=== PATIENT | male | born 1960 | race Caucasian/White ===

== ENCOUNTER → 2023-05-27 14:51 | Outpatient (REF) | payer OTHER, SELFPAY | LOC: DHCBS HW 14:51 | PROVIDERS: ATTENDING PHYSICIAN Internal Medicine Cardiovascular Disease; FAMILY PHYSICIAN Family Medicine | DX: I34.1 Nonrheumatic mitral (valve) prolapse (principal); I42.9 Cardiomyopathy, unspecified | CPT/HCPCS: 93306 ==

== ENCOUNTER → 2023-06-03 11:01 | Day surgery (SDC) | payer OTHER, SELFPAY ==
--- NOTE | 2023-06-03 12:29 | ITS.CL.CARDI ---
Lead Accountant - Cardioversion
Cardioversion
Procedure Report:
Date of Procedure: June 03 2023
Procedure: Cardioversion
Indication: Symptomatic atrial fibrillation
Performing Physician: Christopher Inman DO, FACC
Technique: The patient was brought to the holding area. Signed informed consent was obtained. A time out was called and performed. The patient was anesthetized by the anesthesia service. Anticoagulation status was reviewed and appropriate. R2 pads
were placed anteriorly and posteriorly. A 200 J synchronized biphasic shock restored normal sinus rhythm without significant bradycardia. There were no complications.
Conclusion: Uncomplicated cardioversion from atrial fibrillation to sinus rhythm.
Recommendation: Routine post cardioversion care. Continue alf anticoagulation.
[2023-06-03 12:43] VITALS: BMI 36.4
== END ==
LOC: CATH 11:01
PROVIDERS: ATTENDING PHYSICIAN Internal Medicine Cardiovascular Disease; FAMILY PHYSICIAN Family Medicine; OTHER PHYSICIAN Internal Medicine Cardiovascular Disease
DX: I48.91 Unspecified atrial fibrillation (principal); I45.10 Unspecified right bundle-branch block; I10 Essential (primary) hypertension; Z95.2 Presence of prosthetic heart valve; G47.33 Obstructive sleep apnea (adult) (pediatric); Z79.01 Long term (current) use of anticoagulants
CPT/HCPCS: 92960; 93005

== ENCOUNTER 2023-10-06 09:33 | Inpatient (IN) | payer OTHER, SELFPAY ==
[2023-10-06 09:50] VITALS: BP 133/83
[2023-10-06 09:57] VITALS: BMI 36.1
--- NOTE | 2023-10-06 10:00 | PTCARENOTE ---
Rec'd pt as a direct admit from home for Tikosyn loading; Pt AAOx3 w/no c/o CP or SOB. Pt noted to be in Afib on telemetry monitoring & confirmed w/EKG. Baseline QTc noted to be 428. Pt's VS stable w/HR in the 60's & BP 133/83. IV line placed by
VAT. Labs drawn as ordered. Griselda Garcia NP in to see pt. Pt w/call morrison within reach & plan of care ongoing.
[2023-10-06 10:38] LABS: Hematocrit 40.8 % (39.0-52.0); Mean Corp Hgb Conc. 31.9 g/dL (33.0-37.0); Mean Corpuscular Hgb 21.4 pg (27.0-31.0); Mean Corpuscular Volume 67.2 fL (80.0-94.0); Mean Platelet Volume 11.3 fL (7.4-10.4); Platelet Count 151 10^3/uL (130-400); Red Blood Cell Count 6.07 10^6/uL (4.70-6.10); Red Cell Dist. Width 17.2 % (11.5-14.5); White Blood Cell Count 5.4 10^3/uL (4.8-10.8)
--- NOTE | 2023-10-06 10:46 | CON.CAR ---
Addendum entered and electronically signed by Alvaro Rooney MD 10/06/23 12:29:
Attending addendum: Patient seen and examined. PA note reviewed and findings independently confirmed by me. Briefly, this is a 63-year-old gentleman with a past medical history notable for St. Ze mechanical aortic valve replacement in 2013 with
postoperative atrial fibrillation. Briefly on amiodarone which was stopped in 2013. Developed recurring atrial fibrillation in May 2023 with persistent symptoms over the past several weeks. Now admitted for Tikosyn load.
GEN: AAO x 3. No acute distress
HEENT: NC/AT, sclera are anicteric
LUNGS: Clear to bases bilaterally. No wheezing
CV: Irreg irreg rate and rhythm. Normal S1/S2. No S3, No S4. Murmur: +prosthetic valve click
EXT: No CCE
NEURO: No focal neurologic deficits
ECG: Afib
RECOMMENDATIONS:
-Tikosyn load
-Monitor QT / QTc
-Continue oral anticoag: INR therapeutic and has been therapeutic for many weeks >1 month
-Will continue to monitor
Original Note:
Consultation
Consultation Request
Date/Time Consultation Requested: 10/06/23
Performing Provider: Dr. Rooney
Reason for Consultation: H&P for Tikosyn loading
Medical History
-
History of Present Illness:
Patient presents to the hospital today for direct admission for Tikosyn loading. Patient was last seen in office on 09/04/2023 and was noted to be in persistent atrial fibrillation following most recent cardioversion 06/03/2023. 0 call patient has a
history of [facility] Ze mechanical MVR in 2013 and prior to that had had a history of atrial fibrillation previously managed with amiodarone. Amiodarone was stopped in December 2013. Since then he had no recurrences of atrial fibrillation until
May 2023. Patient feels that he recurred with atrial fibrillation within 3 to 4 weeks of the cardioversion in May. He has sensation of palpitations at times and feeling more fatigued. No chest pain. He is chronically on warfarin managed
by [facility].
PMH:
Persistent Afib
s/p CV 06/03/23
Chronic warfarin OAC managed by [facility]
Previous intra-op MAZE 2013
s/p St. Ze mechanical MVR 08/2013
Past Medical History
Past Medical History: Other (in HPI)
Past Surgical History: Cardiac (mechanical MVR and modified MAZE 08/17/23)
Social History
Tobacco: Non-Smoker
Alcohol: None
Drug: None
Personal:
Living: With Family
Employment: Employed (teacher)
Family History
Family History: Cancer and Other (father with valve repair)
Allergies / Home Medications
Allergy/AdvReac Type Severity Reaction Status Date / Time
No Known Allergies Allergy Verified 08/20/21 03:37
�Medication �Instructions �Recorded �Confirmed �Type
warfarin 5 mg tablet (Jantoven) 3 mg PO DAILY 06/28/13 06/03/23 History
famotidine 20 mg tablet 20 mg PO DAILY #30 tabs 08/22/13 06/03/23 Rx
multivitamin with folic acid 400 1 tab PO DAILY ##0 08/22/13 06/03/23 Rx
mcg tablet (Tab-A-Reji)
carvedilol 6.25 mg tablet 6.25 mg PO BID 06/03/23 06/03/23 History
lisinopril 10 mg tablet 10 mg PO DAILY 06/03/23 06/03/23 History
tamsulosin 0.4 mg capsule 0.4 mg PO DAILY 06/03/23 06/03/23 History
Review of Systems
-
History Source: Patient and Family ( sitting bedside)
All other systems: Negative unless noted
Physical Exam
Vital Signs
Temp Pulse Resp BP Pulse Ox
98.5 F 70 20 133/83 97
10/06/23 09:50 10/06/23 10:30 10/06/23 09:50 10/06/23 09:50 10/06/23 09:50
GEN: NAD. AAOx3
HEENT: MMM
LUNGS: No audible wheeze
CV: Afib with controlled ventricular response on tele
ABD: soft, BS+, NT, ND
EXT: No clubbing, cyanosis, lesions or edema B/L
NEURO: Gross non-focal
SKIN: Warm, dry and pink. No rash
Lab Results
CBC, PT/INR and CMP ordered and pending
Impression / Plan
-
PCP: Dr. Babb
Cardiology: Dr. Chon Skinner
Impression:
Direct admission for Tikosyn loading for persistent Afib 10/06/23
Persistent Afib
s/p CV 06/03/23
Chronic warfarin OAC managed by [facility]
Previous intra-op MAZE 2013
s/p St. Ze mechanical MVR 08/2013
Plan:
-Patient presents to the hospital today for direct admission for Tikosyn loading. Patient was last seen in office on 09/04/2023 and was noted to be in persistent atrial fibrillation following most recent cardioversion 06/03/2023. 0 call patient has
a history of [facility] Ze mechanical MVR in 2013 and prior to that had had a history of atrial fibrillation previously managed with amiodarone. Amiodarone was stopped in December 2013. Since then he had no recurrences of atrial fibrillation until
May 2023. Patient feels that he recurred with atrial fibrillation within 3 to 4 weeks of the cardioversion in May. He has sensation of palpitations at times and feeling more fatigued. No chest pain. He is chronically on warfarin managed
by [facility].
-Admission orders completed by me.
-Labs pending, he was a difficult stick and required the IV team.
-Initial ECG reviewed by me shows atrial fibrillation with RBBB and QTc 428
-INRs are managed by [facility] as an outpatient with an INR goal of 2.5 to 3.5. Last INR on 6/20/24 was 2.6. Patient says he has been taking warfarin 3 mg daily, but [facility] flowsheet says 3.5 mg daily. Will continue with the dose that patient
reports he is actually taking at home which is 3 mg daily. INRs checked every other week using a home INR machine.
-Pending labs will start Tikosyn 500 mcg q 12 hours and plan on a CV on Friday if he fails to convert.
-If for some reason INR is subtherapeutic then will need a GALLO prior to Tikosyn loading. Will follow up on labs.
[2023-10-06 10:48] LABS: INR 3.06; PT 31.6 Sec (11.4-14.6)
[2023-10-06 10:59] LABS: ALT (SGPT) 19 U/L (0-50); AST (SGOT) 34 U/L (17-59); Albumin 4.2 g/dl (3.5-5.0); Alkaline Phosphatase 56 U/L (38-126); Blood Urea Nitrogen 16 mg/dl (9-20); Calcium 8.9 mg/dl (8.4-10.2); Carbon Dioxide 23 mmol/L (22-30); Chloride 106 mmol/L (98-107); Estimated Creatinine Clearance 80 ml/min; Glucose 129 mg/dl (70-99); Magnesium 1.6 mg/dl (1.6-2.3); Potassium 4.7 mmol/L (3.5-5.1); Sodium 137 mmol/L (135-145); Total Bilirubin 2.9 mg/dl (0.2-1.3); eGFR > 60.00
--- NOTE | 2023-10-06 11:29 | W.CARD.TIKOS ---
Initiate Tikosyn
-
I verify that the patient has not taken any verapamil (Isoptin/Calan), ketoconazole (Nizoral), cimetidine (Tagamet), trimethoprim (Trimpex), trimethoprim/sulfamethoxazole (Bactrim), megesterol (Megace), prochlorperazine (Compazine),
hydrochlorothiazide (HCTZ), dolutegravir (Tivicay) or any Class I or Class III anti-arrhythmic within the last three days
AND
I verify that the patient has not taken amiodarone within the last THREE months, or that the patient's amiodarone plasma concentration is <0.3 mcg/mL.
Creatinine 1.0 mg/dL (0.7-1.3) 10/06/23 10:22
Estimated Creat Clear 80 ml/min 10/06/23 10:22
CrCl calculated by me using actual body weight is 103
Does patient have a Ventricular Conduction Abnormality: Yes
I have assessed the baseline QTc interval (using QT for heart rate less than 60 bpm) and deemed the patient is appropriate for Dofetilide therapy. I understand that Tikosyn is contraindicated if the QTc is >440msec (500msec in patients with
ventricular conduction abnormalities).
Baseline QTc (in msec): 428
Ordering Physician: Chon Skinner
[2023-10-06 11:51] VITALS: BP 140/90
--- NOTE | 2023-10-06 12:05 | CM ---
Addendum entered by Alejandra Dennison 10/06/23 14:19:
Telephone call to [facility] to check on co-pay for Dofetilide . His co-pay would be $15.00 a month. Reviewed with Mr. Ocampo to review co-pay. He is agreeable to the co-pay.
Original Note:
Reviewed chart. Met with and Mrs. Fox to review discharge plans He states prior to admission he resides with his spouse in a two story home with one step to enter. He states he has to go up a full flight of steps to get to bedroom/full
bathroom. He states he has a powder room on the first floor. He states prior to admission he was independent with ambulation and adls. He states he has a CPAP Machine at home . He states he has a prescription plan and uses [facility]. Will
check co-pay for Dofetilide once dose is confirmed. Will need a three day script fo go to [facility] to go home with him. Medical work-up in progress. The discharge plan is to return home with his spouse when medically stable.
[2023-10-06] MEDS: COREG PO (12:35)
[2023-10-06] MEDS: FLOMAX PO (12:35)
[2023-10-06] MEDS: ZESTRIL PO (12:35)
[2023-10-06] MEDS: TIKOSYN 500 MCG PO ×2 (12:35→23:26)
[2023-10-06 13:43] VITALS: BMI 36.1
--- NOTE | 2023-10-06 15:54 | W.PN.UPDATE ---
Update Note
Progress Note Update
ECG 2 hours after first dose of Tikosyn 500 mcg reviewed, QTc 482 ms. Will continue to load with Tikosyn 500 mcg q 12 hours.
[2023-10-06 16:04] VITALS: BP 132/86
[2023-10-06] MEDS: PEPCID 20 MG PO (17:13)
[2023-10-06] MEDS: COUMADIN 3 MG PO (17:13)
[2023-10-06 18:45] VITALS: BP 146/84
[2023-10-06] MEDS: COREG 6.25 MG PO (19:51)
[2023-10-07] VITALS (9 sets, daily range): BP systolic 104–155; BP diastolic 72–138
[2023-10-07 05:09] LABS: Hematocrit 40.8 % (39.0-52.0); Hemoglobin 12.6 g/dL (13.0-18.0); Mean Corp Hgb Conc. 30.9 g/dL (33.0-37.0); Mean Corpuscular Hgb 21.4 pg (27.0-31.0); Mean Corpuscular Volume 69.3 fL (80.0-94.0); Mean Platelet Volume 10.9 fL (7.4-10.4); Platelet Count 142 10^3/uL (130-400); Red Blood Cell Count 5.89 10^6/uL (4.70-6.10); Red Cell Dist. Width 15.9 % (11.5-14.5); White Blood Cell Count 5.9 10^3/uL (4.8-10.8)
[2023-10-07 05:19] LABS: INR 3.03; PT 31.3 Sec (11.4-14.6)
[2023-10-07 05:34] LABS: Blood Urea Nitrogen 14 mg/dl (9-20); Calcium 8.6 mg/dl (8.4-10.2); Carbon Dioxide 23 mmol/L (22-30); Chloride 107 mmol/L (98-107); Estimated Creatinine Clearance 89 ml/min; Glucose 104 mg/dl (70-99); Potassium 4.6 mmol/L (3.5-5.1); Sodium 136 mmol/L (135-145); eGFR > 60.00
[2023-10-07 06:20] LABS: Hepatitis C Antibody Negative (Negative)
--- NOTE | 2023-10-07 07:45 | W.PN.CARDCBS ---
Addendum entered and electronically signed by Gerson Maynard MD 10/07/23 13:14:
I saw and examined the patient.
The Wallpaper Installer's note was reviewed and I agree with the note.
Comment: 63-year-old man past medical history of mechanical mitral valve replacement and persistent atrial fibrillation who presents for Tikosyn loading
QTc interval was slightly increased overnight and therefore dose of Tikosyn was decreased to 250 mcg twice daily
Remains in atrial fibrillation
Tentative plan for direct-current cardioversion tomorrow after fifth dose if he does not convert to sinus rhythm prior
Original Note:
Today's Communication / Plan
-
QTc up to 509 after 2nd dose of Tikosyn 500 mcg last night
Decrease Tikosyn to 250 mcg starting with 3rd dose to be given later this morning
Magnesium supplement
CV in AM
Impression / Plan
-
PCP: Dr. Babb
Cardiology: Dr. Chon Skinner
Impression:
Direct admission for Tikosyn loading for persistent Afib 10/06/23
Persistent Afib
s/p CV 06/03/23
Chronic warfarin OAC managed by [facility]
Previous intra-op MAZE 2013
s/p St. Ze mechanical MVR 08/2013
Low normal magnesium level
Echo 05/27/23: EF 55 to 60%, mechanical [facility] Ze mitral valve replacement peak/mean 14/6 mmHg, no MR, normal aortic valve
Plan:
-2nd dose of Tikosyn 500 mcg given late Friday night and on subsequent ECG the QTc increased to 509 ms on very early Friday as reviewed by me. Will decrease Tikosyn to 250 mcg q 12 hours starting with 3rd dose to be given Friday.
-Potassium stable at 4.6. Magnesium was low normal at 1.6 on Friday, will give a magnesium supplement.
-Remains in Afib and will plan on CV Friday.
-INR 3.03 on 10/07/23. Cont outpatient dose of warfarin 3 mg daily. Patient says he has been taking warfarin 3 mg daily, but [facility] flow-sheet says 3.5 mg daily. Will continue with the dose that patient reports he is actually taking at home
which is 3 mg daily.
-INRs are managed by [facility] as an outpatient with an INR goal of 2.5 to 3.5. INRs have been therapeutic for more than 6 months. INRs checked every other week using a home INR machine.
HPI: Patient presents to the hospital today for direct admission for Tikosyn loading. Patient was last seen in office on 09/04/2023 and was noted to be in persistent atrial fibrillation following most recent cardioversion 06/03/2023. 0 call patient
has a history of [facility] Ze mechanical MVR in 2013 and prior to that had had a history of atrial fibrillation previously managed with amiodarone. Amiodarone was stopped in December 2013. Since then he had no recurrences of atrial fibrillation
until May 2023. Patient feels that he recurred with atrial fibrillation within 3 to 4 weeks of the cardioversion in May. He has sensation of palpitations at times and feeling more fatigued. No chest pain. He is chronically on warfarin
managed by [facility].
Progress Note - Committee Member
Subjective
Date of Service: October 07, 2023
He feels well, no complaints from overnight
Objective
Labs:
10/07/23 04:33
10/07/23 04:33
Labs
Hgb 12.6 g/dL (13.0-18.0) L 10/07/23 04:33
Hct 40.8 % (39.0-52.0) 10/07/23 04:33
Plt Count 142 10^3/uL (130-400) 10/07/23 04:33
PT 31.3 Sec (11.4-14.6) H 10/07/23 04:34
INR 3.03 10/07/23 04:34
Sodium 136 mmol/L (135-145) 10/07/23 04:33
Potassium 4.6 mmol/L (3.5-5.1) 10/07/23 04:33
BUN 14 mg/dl (9-20) 10/07/23 04:33
Creatinine 0.9 mg/dL (0.7-1.3) 10/07/23 04:33
Glucose 104 mg/dl (70-99) H 10/07/23 04:33
Vital Signs and I&O:
Vital Signs
Temp Pulse Resp BP Pulse Ox
98.7 F 57 20 104/72 98
10/06/23 19:33 10/07/23 06:00 10/06/23 19:33 10/07/23 04:28 10/06/23 21:36
Vital Signs
Temp Pulse Resp BP Pulse Ox
98.7 F 57 20 104/72 98
10/06/23 19:33 10/07/23 06:00 10/06/23 19:33 10/07/23 04:28 10/06/23 21:36
Intake & Output
10/05/23 10/06/23 10/07/23 10/08/23
06:59 06:59 06:59 06:59
Intake Total 960 / 960
Balance 960 / 960
Physical Exam
Physical Exam
GEN: NAD. AAOx3
HEENT: MMM
LUNGS: No audible wheeze
CV: Rate controlled Afib on tele
ABD: ND
EXT: No edema B/L
NEURO: Gross non-focal
SKIN: No rash
--- NOTE | 2023-10-07 08:05 | PTCARENOTE ---
Assumed care of pt from prev nsg shift AAOx3 w/no c/o CP or SOB; VS stable w/HR in the 60's-70's, BP 134/83. Pt remains Afib/Aflutter according to telemetry monitoring. Plan of care discussed w/pt. Pt aware of decreased dose of Tikosyn for this AM.
No addtl needs at this time. Plan of care ongoing.
[2023-10-07] MEDS: COREG 6.25 MG PO ×2 (08:11→20:42)
[2023-10-07] MEDS: FLUSH (NSS) 1 FLUSH IV (08:11)
[2023-10-07] MEDS: ZESTRIL 10 MG PO (08:12)
[2023-10-07] MEDS: FLOMAX 0.400000000000000022 MG PO (08:12)
[2023-10-07] MEDS: MAGNESIUM OXIDE 500 MG PO (10:04)
[2023-10-07] MEDS: TIKOSYN 250 MCG PO ×2 (10:05→21:29)
--- NOTE | 2023-10-07 15:57 | CM ---
Reviewed chart. Telephone call to [facility] to see if they have Dofetilide 250 mcg in stock. [facility] has Dofetilide 250 mcg in stock. Updated Mr. and Mrs. Fox. He will need a three day script sent to [facility] for a three day
supply to go home with him. Medical work-up in progress. The discharge plan is to return home with his spouse when medically stable.
[2023-10-07] MEDS: PEPCID 20 MG PO (18:22)
[2023-10-07] MEDS: COUMADIN 3 MG PO (18:22)
--- NOTE | 2023-10-08 02:53 | PTCARENOTE ---
Received patient at change of shift up in chair. Denies chest pain. VSS, afib/aflutter on monitor. Dose 4 of Tikosyn given, QTC on follow up EKG 484. Patient NPO as of midnight and aware of possible cardioversion on 10/07. Call morrison within reach.
[2023-10-08 04:09] VITALS: BP 124/71
[2023-10-08 04:41] LABS: PT 29.4 Sec (11.4-14.6)
[2023-10-08 05:07] LABS: Blood Urea Nitrogen 17 mg/dl (9-20); Calcium 9.1 mg/dl (8.4-10.2); Carbon Dioxide 21 mmol/L (22-30); Chloride 107 mmol/L (98-107); Estimated Creatinine Clearance 89 ml/min; Glucose 115 mg/dl (70-99); Potassium 4.1 mmol/L (3.5-5.1); Sodium 135 mmol/L (135-145); eGFR > 60.00
[2023-10-08 07:39] VITALS: BP 117/64
[2023-10-08] MEDS: FLOMAX 0.400000000000000022 MG PO (08:09)
[2023-10-08] MEDS: ZESTRIL 10 MG PO (08:10)
[2023-10-08] MEDS: MAGNESIUM OXIDE 500 MG PO (08:10)
[2023-10-08] MEDS: TIKOSYN 250 MCG PO (08:23)
[2023-10-08] MEDS: COREG 3.125 MG PO (09:01)
[2023-10-08] MEDS: COREG PO (10:06)
--- NOTE | 2023-10-08 10:39 | W.PN.CARDCBS ---
Addendum entered and electronically signed by Angelo Huang MD 10/08/23 13:52:
I saw and examined the patient.
The FAMILY PRESERVATION OFFICER or PA's note was reviewed and I agree with the note.
Comment: General: Well developed, well nourished in NAD.
He is tolerating Tikosyn. He underwent cardioversion to sinus rhythm. Will discharge if ECG okay status post cardioversion. Follow-up has been arranged. Discussed with patient in detail.
Original Note:
Today's Communication / Plan
-
CV today
Check QTc after 5th dose/CV later today
Coreg dose lowered for asymptomatic bradycardia
D/C to home today
Impression / Plan
-
PCP: Dr. Babb
Cardiology: Dr. Chon Skinner
Impression:
Direct admission for Tikosyn loading for persistent Afib 10/06/23
Persistent Afib
s/p CV 06/03/23
Chronic warfarin OAC managed by [facility]
Previous intra-op MAZE 2013
s/p [facility]. Ze mechanical MVR 08/2013
Low normal magnesium level
Echo 05/27/23: EF 55 to 60%, mechanical [facility] Ze mitral valve replacement peak/mean 14/6 mmHg, no MR, normal aortic valve
Plan:
-QTc stable at 484 ms after 4th dose of Tikosyn given Friday night. 5th dose of Tikosyn given Friday morning and CV planned as well. Await ECG after CV/2 hours post-5th dose and if QTc is stable then will d/c to home.
-New to magnesium, will recheck level prior to d/c
-INR 2.80 on 10/08/23. Cont outpatient dose of warfarin 3 mg daily. Patient says he has been taking warfarin 3 mg daily, but [facility] flow-sheet says 3.5 mg daily. Will continue with the dose that patient reports he is actually taking at home
which is 3 mg daily.
-INRs are managed by [facility] as an outpatient with an INR goal of 2.5 to 3.5. INRs have been therapeutic for more than 6 months. INRs checked every other week using a home INR machine.
-Decreased dose of Coreg to 3.125 mg BID due to HRs in the 50s on Friday morning. He is asymptomatic.
-Likely d/c to home 10/08/23
HPI: Patient presents to the hospital today for direct admission for Tikosyn loading. Patient was last seen in office on 09/04/2023 and was noted to be in persistent atrial fibrillation following most recent cardioversion 06/03/2023. 0 call patient
has a history of [facility] Ze mechanical MVR in 2013 and prior to that had had a history of atrial fibrillation previously managed with amiodarone. Amiodarone was stopped in December 2013. Since then he had no recurrences of atrial fibrillation
until May 2023. Patient feels that he recurred with atrial fibrillation within 3 to 4 weeks of the cardioversion in May. He has sensation of palpitations at times and feeling more fatigued. No chest pain. He is chronically on warfarin
managed by [facility].
Progress Note - Cabin Worker
Subjective
Date of Service: October 08, 2023
He feels well, no lightheadedness
Objective
Labs:
10/07/23 04:33
10/08/23 04:12
Labs
Hgb 12.6 g/dL (13.0-18.0) L 10/07/23 04:33
Hct 40.8 % (39.0-52.0) 10/07/23 04:33
Plt Count 142 10^3/uL (130-400) 10/07/23 04:33
PT 29.4 Sec (11.4-14.6) H 10/08/23 04:12
INR 2.80 10/08/23 04:12
Sodium 135 mmol/L (135-145) 10/08/23 04:12
Potassium 4.1 mmol/L (3.5-5.1) 10/08/23 04:12
BUN 17 mg/dl (9-20) 10/08/23 04:12
Creatinine 0.9 mg/dL (0.7-1.3) 10/08/23 04:12
Glucose 115 mg/dl (70-99) H 10/08/23 04:12
Vital Signs and I&O:
Vital Signs
Temp Pulse Resp BP Pulse Ox
97.6 F 80 18 117/64 98
10/08/23 07:37 10/08/23 08:00 10/08/23 07:37 10/08/23 07:39 10/08/23 07:37
Vital Signs
Temp Pulse Resp BP Pulse Ox
97.6 F 80 18 117/64 98
10/08/23 07:37 10/08/23 08:00 10/08/23 07:37 10/08/23 07:39 10/08/23 07:37
Intake & Output
10/06/23 10/07/23 10/08/23 10/09/23
06:59 06:59 06:59 06:59
Intake Total 960 / 960 480 / 480
Balance 960 / 960 480 / 480
Physical Exam
Physical Exam
GEN: NAD. AAOx3
HEENT: MMM
LUNGS: No audible wheeze
CV: Rate controlled Afib on tele
ABD: ND
EXT: No edema B/L
NEURO: Gross non-focal
SKIN: No rash
[2023-10-08 11:20] LABS: Magnesium 1.7 mg/dl (1.6-2.3)
--- NOTE | 2023-10-08 12:08 | ITS.CL.CARDI ---
Addendum entered and electronically signed by Pat Peña MD 10/08/23 12:11:
A single 200 Joule biphasic shock restore sinus rhythm
Original Note:
Traffic Control Officer - Cardioversion
Cardioversion
Procedure Report:
Date of Procedure: 10/08/23.
Procedure: Cardioversion.
Indication: Symptomatic atrial fibrillation.
Performing Physician: Janine Peña MD
Technique: The patient was brought to the holding area. Signed informed consent was obtained. A time out was called and performed. The patient was sedated by a member of the anesthesia service. Anticoagulation status was reviewed and was
appropriate. R-2 pads were placed anteriorly and posteriorly. A [ ] J synchronized biphasic shock restored normal sinus rhythm without significant bradycardia. There were no complications.
Conclusion: Uncomplicated cardioversion from atrial fibrillation to sinus rhythm.
Recommendation: Routine post cardioversion care. Continue longterm anticoagulation.
cc: Angle
[2023-10-08 12:56] VITALS: BP 139/79
--- NOTE | 2023-10-08 13:48 | PTCARENOTE ---
Pt returned from the cardioversion in SR, rate in the 60's. No c/o offered.
--- NOTE | 2023-10-08 14:07 | W.DS.TRANS ---
DC Summary - Fruit Express Agent
-
Discharge Instructions:
Discharge Diagnosis/Procedures Direct admission for Tikosyn (dofetilide)
loading for persistent atrial fibrillation
Diet As tolerated
Activity Other activity
Driving Restrictions No driving for 24 hours
Bathing Restrictions None
Instructions:
Stand-Alone Forms: DC Instructions- Cath/EP Lab
Changes to Home Medications: Yes
Discharge Medications:
DC Medications w/original date entered in [employer]
warfarin 5 mg tablet (Jantoven) 3 mg PO DAILY Blood Clot Prevention/Tx 06/28/13
lisinopril 10 mg tablet 10 mg PO DAILY Blood Pressure 06/03/23
tamsulosin 0.4 mg capsule 0.4 mg PO DAILY Urinary Issue 06/03/23
famotidine 20 mg tablet 20 mg PO DAILY Gastrointestinal Issue 10/06/23
multivitamin with folic acid 400 mcg tablet (Tab-A-Reji) 1 tab PO DAILY Supplement 10/07/23
carvedilol 3.125 mg tablet 3.125 mg PO BID Arrhythmia #60 tabs 10/08/23
dofetilide 250 mcg capsule 250 mcg PO Q12 Arrhythmia #60 caps 10/08/23
Home Medication Changes
New to Tikosyn
Coreg dose decreased
Pending Results: No
--- NOTE | 2023-10-08 16:03 | PTCARENOTE ---
Pt remains in SR, rate in the 60's to 70's. Pt states he feels good. Discharged to home with his . Discharge instructions given and reviewed with pt and his . Pt verbalizes understanding and all questions answered.
== END 2023-10-08 16:15 | disposition home or self-care (01) | DRG 310 ==
LOC: IVU 09:33
PROVIDERS: Internal Medicine Cardiovascular Disease; Physician Assistant Medical; ADMITTING PHYSICIAN Internal Medicine Cardiovascular Disease; ATTENDING PHYSICIAN Internal Medicine Cardiovascular Disease; OTHER PHYSICIAN Internal Medicine Interventional Cardiology
PROC: 3E0DXRZ Introduction of Antiarrhythmic into Mouth and Pharynx, External Approach (ICD-10-PCS; 2023-10-06)
PROC: 5A2204Z Restoration of Cardiac Rhythm, Single (ICD-10-PCS; 2023-10-08)
DX: I48.19 Other persistent atrial fibrillation (principal); I45.10 Unspecified right bundle-branch block; Z79.01 Long term (current) use of anticoagulants; Z95.2 Presence of prosthetic heart valve
CPT/HCPCS: 80048; 80053; 83735; 85027; 85610; 86803; 92960; 93005

== ENCOUNTER → 2024-05-18 14:44 | Outpatient (REF) | payer MEDICARE, OTHER, SELFPAY | LOC: RCS 14:44 | PROVIDERS: ATTENDING PHYSICIAN Internal Medicine Cardiovascular Disease; FAMILY PHYSICIAN Family Medicine | DX: I48.91 Unspecified atrial fibrillation (principal) | CPT/HCPCS: 93306 ==

== ENCOUNTER 2024-08-04 12:17 | Emergency (ER) | payer MEDICARE, OTHER, SELFPAY ==
[2024-08-04 12:21] VITALS: BP 172/90
[2024-08-04] MEDS: NSS 1000 IV (12:43)
[2024-08-04] MEDS: MORPHINE SULFATE 2 MG IV (12:44)
[2024-08-04] MEDS: ZOFRAN 4 MG IV (12:44)
[2024-08-04 13:02] LABS: % Basophils 0.4 % (0-2); % Eosinophils 0.6 % (0-6); % Immature Granulocytes 0.4 % (0-0.5); % Monocytes 7.3 % (1.7-9.3); % Neutrophils 83.3 % (42.2-75.2); Absolute Eosinophils 0.1 10^3/uL (0-0.7); Absolute Lymphocytes 0.9 10^3/uL (1.2-3.4); Absolute Monocytes 0.8 10^3/uL (0.1-0.6); Absolute Neutrophils 9.2 10^3/uL (1.4-6.5); Hematocrit 38.8 % (39.0-52.0); Hemoglobin 12.3 g/dL (13.0-18.0); Mean Corp Hgb Conc. 31.7 g/dL (33.0-37.0); Mean Corpuscular Hgb 21.5 pg (27.0-31.0); Mean Platelet Volume 10.1 fL (7.4-10.4); Nucleated Red Blood Cells % 0 % (-); Platelet Count 169 10^3/uL (130-400); Red Blood Cell Count 5.71 10^6/uL (4.70-6.10); Red Cell Dist. Width 15.2 % (11.5-14.5); White Blood Cell Count 11.1 10^3/uL (4.8-10.8)
[2024-08-04 13:03] LABS: Urine Albumin 3+ (Neg - Trace); Urine Bilirubin Negative (Negative); Urine Character Slightly Cloudy (Clear); Urine Color Yellow; Urine Glucose Negative (Negative); Urine Ketone Negative (Negative); Urine Leukocyte 1+ (Negative); Urine Nitrite Negative (Negative); Urine Occult Blood 4+ (Negative); Urine Specific Gravity 1.025 (<1.030); Urine Urobilinogen Negative (Neg - 1+)
[2024-08-04 13:14] LABS: ALT (SGPT) 22 U/L (0-50); AST (SGOT) 38 U/L (17-59); Albumin 4.4 g/dl (3.5-5.0); Alkaline Phosphatase 61 U/L (38-126); Blood Urea Nitrogen 19 mg/dl (9-20); Calcium 8.9 mg/dl (8.4-10.2); Carbon Dioxide 21 mmol/L (22-30); Chloride 105 mmol/L (98-107); Glucose 134 mg/dl (70-99); Potassium 4.5 mmol/L (3.5-5.1); Sodium 136 mmol/L (135-145); Total Bilirubin 2.6 mg/dl (0.2-1.3); Total Protein 7.3 g/dl (6.3-8.2); eGFR > 60.00
--- NOTE | 2024-08-04 13:23 | ED.GENMED ---
History of Present Illness
General
Chief Complaint: Flank Pain
Source: patient
Time Seen by Provider: 08/04/24 12:26
History of Present Illness
History of Present Illness:
64-year-old male with past medical history of hypertension, atrial fibrillation, valvular disease presenting to the emergency department for evaluation of left-sided flank pain that began rather acutely last night accompanied with nausea and
vomiting describing the pain to be a dull aching sensation that is mostly constant with intermittent sharper pains that feel similar to when he previously had kidney stones in the right side. Patient did not take anything for symptoms prior to
arrival. He denies any fevers, chills, rigors, bowel changes. He does note that last week he noticed a little bit of blood within his urine but this resolved within an hour or so. Patient does take Coumadin due to his valvular disease and reports
his last INR a week ago was around 2.3 and he did take an increased dose to get it back to within the therapeutic range between 2.5-3.5.
Past History
Past History
ED Past Medical History: Arrthythmia (Afib), HTN and Valvular disease
ED Past Surgical History: Cardiac and Other (Valve replacement 2013)
Patient has exhibited threatening behavior?: No
Social History
Tobacco: Non-smoker
Alcohol: None
Drug: None
Personal:
Living: with family
Review of Systems
Review of Systems
All Other Systems: ROS reviewed and negative except as documented in HPI and ROS
Phy Exam
Physical Exam
Physical Exam:
GENERAL: Alert , in no apparent distress
EYE: clear conjunctiva b/l
HEAD: NCAT
ENT: mmm.
CARDIAC: Regular rate and rhythm .
LUNGS: Clear breath sounds bilaterally, no acute respiratory distress, no wheezes/rales/rhonchi
ABDOMEN: Soft, without focal tenderness, no r/g, mild left CVAT
NEUROLOGICAL: Alert and oriented
SKIN: Warm and dry, skin intact.
MUSCULOSKELETAL: well perfused.
PSYCH: Normal and appropriate interaction.
Scores
Heart Failure Risk
Heart Failure Risk Score: Not Applicable
Heart Score for Chest Pain Patients
STEMI patient?: Not applicable
Withdrawal Assessment of Alcohol
Withdrawal Assessment Completed?: Not applicable
Course
Orders/Labs/Results
Orders:
Orders
08/04/24 12:36
CT Abd/pel Without Iv Or Oral Urgent
Comment:
Reason For Exam: left flank pain, hematuria
0.9% Sodium Chloride 1000 ml [Nss] 1,000 ml IV BOLUS
Morphine Sulfate 2 mg IV NOW STA
Ondansetron Injectable [Zofran] 4 mg IV NOW STA
08/04/24 12:37
Electrocardiogram (*1) Urgent
Reason for Study: QTc Monitoring
EKG- Treatment ONCE
08/04/24 12:41
Complete Blood Count/With Diff Urgent
Comprehensive Metabolic Panel Urgent
Urinalysis Reflex To Culture Urgent
Date Specimen was Collected: 08/04/24
Time Specimen was Collected: 12:38
Urine Microscopic Reflex Cult Urgent
Urine Culture Urgent
JOE Source: U
Specimen Description:
Date Specimen was Collected: 08/04/24
Time Specimen was Collected: 12:38
08/04/24 12:49
PTT Urgent
Prothrombin Time Urgent
Abnormal Lab Results
08/04/24
12:41
WBC 11.1 H 10^3/uL
(4.8-10.8)
Hgb 12.3 L g/dL
(13.0-18.0)
Hct 38.8 L %
(39.0-52.0)
MCV 68.0 L fL
(80.0-94.0)
MCH 21.5 L pg
(27.0-31.0)
MCHC 31.7 L g/dL
(33.0-37.0)
RDW 15.2 H %
(11.5-14.5)
Absolute Neuts (auto) 9.2 H 10^3/uL
(1.4-6.5)
Absolute Lymphs (auto) 0.9 L 10^3/uL
(1.2-3.4)
Absolute Monos (auto) 0.8 H 10^3/uL
(0.1-0.6)
Neutrophils % 83.3 H %
(42.2-75.2)
Lymphocytes % 8.0 L %
(20.5-51.1)
Carbon Dioxide 21 L mmol/L
(22-30)
Glucose 134 H mg/dl
(70-99)
Total Bilirubin 2.6 H mg/dl
(0.2-1.3)
Ur Occult Blood Reflex 4+ A
(Negative)
Leukocyte Esterase Rfl 1+ A
(Negative)
Urine RBC 30-40 A /HPF
(0-2)
Urine Bacteria (Reflex) Moderate A
(Negative)
Urine Albumin (Reflex) 3+ A
(Neg - Trace)
08/04/24 12:41
08/04/24 12:41
Vital Signs
Initial and Last Documented VS:
Initial Vital Signs
Pulse Resp BP Pulse Ox
76 16 172/90 96
08/04/24 12:21 08/04/24 12:21 08/04/24 12:21 08/04/24 12:21
Last Documented Vital Signs
Pulse Resp BP Pulse Ox
76 18 138/72 98
08/04/24 13:57 08/04/24 13:57 08/04/24 13:57 08/04/24 13:57
MDM/Problems Addressed
Differential Diagnosis Includes:
Renal/ureteral colic, pyelonephritis/cystitis, less concern for malignancy, shingles, diverticulitis also considered
MDM/Problems Addressed:
64-year-old male presenting to the ER for evaluation of left flank pain, last week did have an episode of blood in his urine but this is since resolved. He does note some mild pain currently as well as some nausea and vomiting that occurred prior
to arrival. Did not take anything for pain before coming. Given patient is anticoagulated on Coumadin will avoid Toradol. Will treat with 2 mg of morphine and [address] Labs and CT ordered. Awaiting urinalysis. Disposition pending
*Radiology
Radiology exam reviewed: radiology read reviewed
*Pulse Oximetry
Patient hypoxic: no
*Critical Care Note
Total Time (30-74mins, 75-104mins- exclusive of procedures): Not Applicable
Data Reviewed
Review of Other/Old Records Reveals: Labs and Records
Patient Management
Escalation/DeEscalation of care consider admission/obs:
Patient CT scan shows a 6 mm obstructing stone at the mid left ureter with mild left-sided hydroureteronephrosis. Incidental findings of additional stones discussed with the patient as well as the indeterminate lesion on the inferior pole of the
left kidney which patient believes he has notified of before on previous outpatient imaging. He does note pain is fully resolved and he feels well to be discharged home. Prescriptions for Percocet and Zofran provided. Patient is already on
tamsulosin. He will follow-up with his urologist as an outpatient. Aware of return precautions to the ER.
ED Attending Note
-
Portions of this chart may have been created with voice recognition software.� Occasional wrong word or��sound alike� substitutions may have occurred due to the inherent limitations of voice recognition software.
Discharge Plan
Departure
Patient Disposition: Home (Routine Discharge)
Date of Disposition: 08/04/24
Time of Disposition: 13:55
Patient with high blood pressure during this ER visit?: Yes
Discharge Problem:
Ureterolithiasis, Ureteral colic
Instructions: Kidney Stones (DC)
Prescriptions:
New
oxycodone-acetaminophen [Percocet] 5-325 mg tablet
1 tab PO Q6HPRN PRN (Reason: pain) Qty: 8 0RF
ondansetron 4 mg tablet,disintegrating
4 mg PO TIDPRN PRN (Reason: nausea/vomiting) Qty: 10 0RF
No Action
warfarin [Jantoven] 5 MG tablet
3 mg PO DAILY
Patient Comments:
dose may vary take as directed
tamsulosin 0.4 mg Capsule
0.4 mg PO DAILY
lisinopril 10 mg Tablet
10 mg PO DAILY
famotidine 20 MG tablet
20 mg PO DAILY
Rx Instructions:
take for 30 days and then discontinue
multivitamin with folic acid [Tab-A-Reji] 1 TABLET tablet
1 tab PO DAILY
dofetilide 250 mcg Capsule
250 mcg PO Q12 Qty: 60 11RF
carvedilol 3.125 mg Tablet
3.125 mg PO BID Qty: 60 11RF
Referrals:
Bala Babb MD [Family Provider] -
Interventions
Interventions:
*ED- Fall Risk Assessment Last Done: 08/04/24 12:26
BS-Gopuwj-Ojoilcrwxf Assessment Last Done: 08/04/24 12:26
ED-Male Genitourinary Assessment Last Done: 08/04/24 12:26
Discharge Date and Time
Print Language: HEBREW
[2024-08-04 13:38] LABS: Urine Squamous Cell 0-2 /LPF (Few)
[2024-08-04 13:39] LABS: Urine Bacteria Moderate (Negative); Urine Red Blood Cell 30-40 /HPF (0-2); Urine Uric Acid Crystals Present
[2024-08-04 13:57] VITALS: BP 138/72
== END 2024-08-04 15:02 | disposition home or self-care (01) ==
LOC: EMR 12:17
PROVIDERS: Physician Assistant Medical; EMERGENCY PHYSICIAN Emergency Medicine; FAMILY PHYSICIAN Family Medicine
DX: N20.1 Calculus of ureter (principal); N23 Unspecified renal colic; I10 Essential (primary) hypertension; I48.91 Unspecified atrial fibrillation; I38 Endocarditis, valve unspecified; Z79.01 Long term (current) use of anticoagulants; Z87.442 Personal history of urinary calculi; Z95.2 Presence of prosthetic heart valve
CPT/HCPCS: 99284; 96374; 96375; 96361; 74176; 80053; 81003; 81015; 85025; 87086; 93005

== ENCOUNTER 2024-09-19 23:52 | Day surgery (SDC) | payer MEDICARE, OTHER, SELFPAY ==
[2024-09-19 19:50] VITALS: BP 176/95
[2024-09-19 20:00] VITALS: BMI 36.0
--- NOTE | 2024-09-19 20:07 | ED.GENMED ---
History of Present Illness
General
Chief Complaint: Flank Pain
Time Seen by Provider: 09/19/24 19:58
History of Present Illness
History of Present Illness:
64-year-old male with history of A-fib status post maze and mitral valve replacement presents to the emergency department for evaluation of left flank pain beginning abruptly just prior to arrival. Has prior history of kidney stones and pain is
similar. Was here in July for the same and at that time on imaging was noted to have a nonobstructing 1 cm stone in the left kidney. Denies any fevers or chills. Follows with [email or web address]] urology
Past History
Past History
ED Past Medical History: Arrthythmia (Afib), HTN and Valvular disease
ED Past Surgical History: Cardiac and Other (Valve replacement 2013)
Patient has exhibited threatening behavior?: No
Social History
Tobacco: Non-smoker
Alcohol: None
Drug: None
Personal:
Living: with family
Review of Systems
Review of Systems
Allergies reviewed?: Yes
All Other Systems: ROS reviewed and negative except as documented in HPI and ROS
Phy Exam
Physical Exam
Physical Exam:
GEN: Visibly uncomfortable
HEENT: Oral mucosa moist, no scleral icterus
Cardiac: Regular rate
Lung: No respiratory distress, no tachypnea
MSK: No gross deformity or injuries
Skin: Good color, no pallor or jaundice, no rashes
Neuro: AO x3, moves all extremities freely
Psych: Calm, cooperative
Course
Orders/Labs/Results
Orders:
Orders
09/19/24 20:02
CT Abd/pel Without Iv Or Oral Urgent
Comment:
Reason For Exam: L flank pain
0.9% Sodium Chloride 1000 ml [Nss] 1,000 ml IV BOLUS
HYDROmorphone [Dilaudid] 0.5 mg IV NOW STA
Ondansetron Injectable [Zofran] 4 mg IV NOW STA
09/19/24 20:11
Basic Metabolic Panel Urgent
Complete Blood Count/No Diff Urgent
PT/INR [Prothrombin Time] Urgent
09/19/24 20:38
Morphine Sulfate 4 mg IV NOW STA
09/19/24 22:22
Urinalysis Reflex To Culture Urgent
Date Specimen was Collected: 09/19/24
Time Specimen was Collected: 22:19
Urine Microscopic Reflex Cult Urgent
09/19/24 22:30
Morphine Sulfate 4 mg IV NOW STA
09/19/24 23:00
Flush (0.9% Sodium Chloride) [Flush (Nss)] See Dose Instructions IV PER PROTOCOL
09/19/24 23:27
EKG [Electrocardiogram (*1)] Stat
Reason for Study: QTc Monitoring
09/19/24 23:28
HYDROmorphone [Dilaudid] 1 mg IV NOW STA
09/19/24 23:34
Admit/Transfer Patient As Directed
Co-Sign Provider:
Level of Care: Observation services
Assign to:: Medical/Surgical
Physician / Group: Archie Claros
Diagnosis: Ureterolithiasis
PRN Pain Medication Management As Directed
May give lesser potent ordered pain med per pt: Yes
preference::
Protocol:: Medication orders for pain may be administered in a
manner that supports deferring to patient preference
when the pt is:
- Requesting an ordered lesser potent pain medication.
Least to most potent pain medications are defined
as: acetaminophen < NSAID < tramadol < opioids
(morphine, oxycodone, hydromorphone).
- Requesting a lesser dose of the same medication IF
ORDERED.
- Requesting a less intrusive route of administration
if both routes are prescribed by the provider (PO <
IV).
09/19/24 23:36
Code Status As Directed
Resuscitation Status: Full Code
09/20/24 00:33
0.9% Sodium Chloride 1000 ml [Nss] 1,000 ml IV 125 mls/hr
Acetaminophen [Tylenol] 650 mg PO Q4HPRN PRN
Morphine Sulfate 4 mg IV Q1HPRN PRN
Ondansetron Injectable [Zofran] 4 mg IV Q6HPRN PRN
Oxycodone/Acetaminophen [Percocet 5/325] 1 tablet PO Q4HPRN PRN
Oxycodone/Acetaminophen [Percocet 5/325] 2 tablet PO Q4HPRN PRN
09/20/24 00:33
CARDIOLOGY CONSULT Routine
Consulting Provider: Aquilino Linares
Was physician already notified: Yes
Activity As Directed
Activity Level: As Tolerated
Intake/ Output As Directed
Frequency: Per unit guidelines
Okay to Shower As Directed
Pneumatic Compression Sleeves As Directed
Type: Knee high
Strain Urine As Directed
Vital Signs As Directed
Frequency: Per unit guidelines
Weight As Directed
Frequency: Once
Comment: on admission
DX Deep Vein Thrombosis Video Routine
09/20/24 Breakfast
NPO
Allow oral meds: Yes
Allow clear liquids: 4hrs prior to procedure
Comment: may have unrestricted clear liquid up to 4 hrs prior to scheduled procedure
Basic Metabolic Panel IN AM
Complete Blood Count/No Diff IN AM
09/20/24 08:00
Carvedilol [Coreg] 3.125 mg PO BID
Dofetilide [Tikosyn] 250 mcg PO Q12
Famotidine [Pepcid] 20 mg PO DAILY
Lisinopril [Zestril] 10 mg PO DAILY
Multivitamin [Theragran] 1 tablet PO DAILY
Tamsulosin [Flomax] 0.8 mg PO DAILY
Abnormal Lab Results
09/19/24 09/19/24
20:11 22:22
WBC 12.1 H 10^3/uL
(4.8-10.8)
Hgb 12.6 L g/dL
(13.0-18.0)
MCV 67.9 L fL
(80.0-94.0)
MCH 21.3 L pg
(27.0-31.0)
MCHC 31.3 L g/dL
(33.0-37.0)
RDW 17.7 H %
(11.5-14.5)
PT 25.3 H Sec
(11.4-14.6)
Chloride 108 H mmol/L
(98-107)
BUN 21 H mg/dl
(9-20)
Glucose 121 H mg/dl
(70-99)
Ur Occult Blood Reflex 1+ A
(Negative)
Urine Bacteria (Reflex) Few A
(Negative)
Urine Albumin (Reflex) 2+ A
(Neg - Trace)
09/19/24 20:11
09/19/24 20:11
Vital Signs
Initial and Last Documented VS:
Initial Vital Signs
Temp Pulse Resp BP Pulse Ox
98.6 F 80 22 176/95 100
09/19/24 19:50 09/19/24 19:50 09/19/24 19:50 09/19/24 19:50 09/19/24 19:50
Last Documented Vital Signs
Temp Pulse Resp BP Pulse Ox
97.9 F 67 18 143/79 96
09/20/24 00:35 09/20/24 00:35 09/20/24 00:35 09/20/24 00:35 09/20/24 00:35
MDM/Problems Addressed
MDM/Problems Addressed:
patient is found to have a nearly 1 cm obstructing proximal ureteral stone, he will be admitted medically for management of his chronic anticoagulation with plan for operative intervention tomorrow. At this time he is clinically well with no signs
of sepsis
*Pulse Oximetry
Patient hypoxic: no (100% on room air)
*Critical Care Note
Total Time (30-74mins, 75-104mins- exclusive of procedures): Not Applicable
Update Note
Update Note:
2014: Case reviewed with urology on-call Dr. Ball, request patient be admitted to the hospitalist service and Coumadin be held tonight in anticipation of stenting at some point in the
ED Attending Note
-
Portions of this chart may have been created with voice recognition software.� Occasional wrong word or��sound alike� substitutions may have occurred due to the inherent limitations of voice recognition software.
Discharge Plan
Departure
Patient Disposition: Admit
Date of Disposition: 09/19/24
Time of Disposition: 22:52
Presentation/result/management discussed w/ accepting MD/DO: Hospitalist
Discharge Problem:
Ureterolithiasis, Chronic anticoagulation
Interventions
Interventions:
*Risk Screen - Suicide Last Done: 09/19/24 19:50
*General Assessment Last Done: 09/19/24 19:50
*Neglect/Abuse Screening Last Done: 09/19/24 19:50
*ED- Fall Risk Assessment Last Done: 09/19/24 20:23
*Nursing Disposition Last Done: 09/20/24 00:30
SE-Alxcos-Ttjverjgqm Assessment Last Done: 09/19/24 20:23
ED-Male Genitourinary Assessment Last Done: 09/19/24 20:23
Discharge Date and Time
Discharge Date/Time: 09/20/24 00:30
[2024-09-19] MEDS: NSS 1000 IV (20:16)
[2024-09-19] MEDS: ZOFRAN 4 MG IV (20:16)
[2024-09-19] MEDS: DILAUDID 0.5 MG IV (20:18)
[2024-09-19 20:21] LABS: Hematocrit 40.2 % (39.0-52.0); Hemoglobin 12.6 g/dL (13.0-18.0); Mean Corp Hgb Conc. 31.3 g/dL (33.0-37.0); Mean Corpuscular Hgb 21.3 pg (27.0-31.0); Mean Corpuscular Volume 67.9 fL (80.0-94.0); Platelet Count 176 10^3/uL (130-400); Red Blood Cell Count 5.92 10^6/uL (4.70-6.10); Red Cell Dist. Width 17.7 % (11.5-14.5); White Blood Cell Count 12.1 10^3/uL (4.8-10.8)
[2024-09-19 20:27] LABS: INR 2.29; PT 25.3 Sec (11.4-14.6)
[2024-09-19 20:35] LABS: Blood Urea Nitrogen 21 mg/dl (9-20); Calcium 8.9 mg/dl (8.4-10.2); Carbon Dioxide 23 mmol/L (22-30); Chloride 108 mmol/L (98-107); Estimated Creatinine Clearance 68 ml/min; Glucose 121 mg/dl (70-99); Potassium 4.7 mmol/L (3.5-5.1); Sodium 137 mmol/L (135-145); eGFR > 60.00
[2024-09-19] MEDS: MORPHINE SULFATE 4 MG IV ×2 (20:41→22:46)
[2024-09-19 21:21] VITALS: BP 132/71
[2024-09-19 22:27] LABS: Urine Albumin 2+ (Neg - Trace); Urine Bilirubin Negative (Negative); Urine Character Clear (Clear); Urine Color Yellow; Urine Glucose Negative (Negative); Urine Ketone Negative (Negative); Urine Leukocyte Negative (Negative); Urine Nitrite Negative (Negative); Urine Occult Blood 1+ (Negative); Urine Urobilinogen Negative (Neg - 1+)
[2024-09-19 22:33] LABS: Urine Squamous Cell 0-2 /LPF (Few)
[2024-09-19 22:35] LABS: Urine Bacteria Few (Negative); Urine Red Blood Cell 0-2 /HPF (0-2); Urine White Cell 0-2 /HPF (0-5)
[2024-09-19 22:45] VITALS: BP 156/85
--- NOTE | 2024-09-19 22:51 | HPS.HSE ---
Addendum entered and electronically signed by Archie Claros DO 09/20/24 00:49:
Reviewed with Cardiology and Urology.
With INR = 2.29, recommendation was to begin bridging Heparin now.
Urology noted that they would hold Heparin 6-8 hours pre-op.
He is scheduled for OR at 8 AM (i.e. 7 hours from now).
Given that timing, will hold on initiation of heparin for now and plan to begin bridge following OR.
Addendum entered and electronically signed by Archie Claros DO 09/20/24 00:28:
Patient seen and examined independently. Agree with findings and plan as set forth by CAMILLE Bates.
Patient is a 64y M with PMH significant for mechanical MVR, A-Fib and hypertension who presents to ED complaining of L flank pain that started this afternoon. Patient had associated N/V. No fevers or chills. He had a CT scan done about 3 weeks
ago showing a large stone in the renal collecting system. CT scan done today shows 9mm stone now at the L UPJ.
Ass:
L UPJ Stone
Mechanical MVR
Coumadin Coagulopathy
Paroxysmal Atrial Fibrillation
Benign Hypertension
Plan:
Admit for further evaluation and treatment.
Pain control / supportive care overnight.
Urology consulted.
INR on admission is 2.29 with last Coumadin dose in the PM on 09/18.
Hold Coumadin tonight.
Plan is for OR in AM for cysto / stent.
Cardiology consulted.
Plan for Heparin bridge / restart Coumadin post-op 09/20.
Continue other med regimen.
Original Note:
Family Physician
-
Family Physician: NOT KNOW UNKNOWN - PT DOES
Chief Complaint
-
left flank pain
History of Present Illness
Patient is a 64-year-old male with past medical history significant for hypertension, atrial fibrillation, MVP, anemia, thrombocytopenia and mitral valve prolapse who presented to [facility] ED for evaluation of left flank pain. Patient reports that flank
pain started midafternoon aburptly today. Patient has had multiple episodes of nausea and vomiting since onset. Denies any fever, chills, cough, shortness of breath, chest pain, constipation, diarrhea or urinary symptoms.
Medical History
Past Medical History
Past Medical History: Reports Other
Additional Past Medical History:
hypertension
atrial fibrillation
mitral valve prolapse
anemia
thrombocytopenia
Past Surgical History: Reports Other
Additional Past Surgical History:
mitral valve replacement
Fistulectomy
Knee Surgery, Arthroscopic Miniscus repair
cardioversion
broke arm 10/2018
Cardioversion 05/2023
Social History
Tobacco: Non-smoker
Alcohol: Occasional
Drug: None
Personal:
Living: With Family
Employment: Retired
Family History
Family History: Not pertinent
Allergies / Home Medications
Allergies reflects when Allergies were last updated in [facility].
Home Medications with original date entered in [facility]
Allergy/Medication List:
Allergies
Allergy/AdvReac Type Severity Reaction Status Date / Time
No Known Allergies Allergy Verified 09/19/24 20:01
Home Medications
lisinopril 10 mg tablet 10 mg PO DAILY Blood Pressure 06/03/23
tamsulosin 0.4 mg capsule 0.8 mg PO DAILY Urinary Issue 06/03/23
famotidine 20 mg tablet 20 mg PO DAILY Gastrointestinal Issue 10/06/23
multivitamin with folic acid 400 mcg tablet (Tab-A-Reji) 1 tab PO DAILY Supplement 10/07/23
carvedilol 3.125 mg tablet 3.125 mg PO BID Arrhythmia #60 tabs 10/08/23
dofetilide 250 mcg capsule 250 mcg PO Q12 Arrhythmia #60 caps 10/08/23
warfarin 1 mg tablet 0.5 mg PO DAILY 09/19/24
warfarin 2.5 mg tablet 2.5 mg PO DAILY 09/19/24
Review of Systems
-
History Source: Patient
Abdomen/GI: Reports Abdominal Pain (left flank ), Nausea and Vomiting
Physical Exam
Vital Signs
Vital Signs
Temp Pulse Resp BP Pulse Ox
98.6 F 75 14 132/71 97
09/19/24 19:50 09/19/24 21:21 09/19/24 21:21 09/19/24 21:21 09/19/24 21:21
Physical Exam
General: Well Developed, Well Nourished, No Apparent Distress, Comfortable, Conversant and Morbidly Obese
HEENT: NormoCephalic, Moist mucous membranes, Atraumatic, Simpson Conjunctivae, Nose Appears Normal and Ears Appear Normal
Respiratory: Clear
Cardiac: S1/S2 and Regular Rhythm
Breast: Deferred by me
GI: Soft, Non Distended, Normal Bowel Sounds and Tender; No Organomegaly
Rectal: Deferred by Provider
Genito-urinary: Deferred by me
Musculoskeletal: No Clubbing, No Cyanosis and No Edema
Skin: IV/Catheter Site
Neuro: Awake, Alert, AO x 3 and Nonfocal/grossly intact
Psych: Calm and Intact Judgment/Insight
Laboratory Results
-
09/19/24 20:11
09/19/24 20:11
Laboratory Results
PT 25.3 Sec (11.4-14.6) H 09/19/24 20:11
INR 2.29 09/19/24 20:11
Data Reviewed
-
CT Scan: Report Reviewed by me (Abd/Pel: Stable mild left hydronephrosis and moderate perinephric stranding secondary to a 9 mm left UPJ stone. Previously this stone was in the left proximal collecting system. Additional nonobstructing bilateral
renal stones. Stable Simple right renal cyst. Stable Mildly hyperdense left renal l)
Lab Data: Labs Reviewed by me (WBC 12.1, hgb 12.6, hct 40.2, plt 176, INR 2.29)
Impression/Plan
-
IMPRESSION/PLAN:
#Ureterolithiasis
WBC 12.1
Abd/Pel CT: Stable mild left hydronephrosis and moderate perinephric stranding secondary to a 9 mm left UPJ stone. Previously this stone was in the left proximal collecting system.
Additional nonobstructing bilateral renal stones. Stable
Simple right renal cyst. Stable
Mildly hyperdense left renal lesion. A nonurgent dedicated stable CT of the kidneys pre- and post-IV contrast or MRI examination is recommended when the patient is able.
Left adrenal nodule consistent with a benign adenoma
Gallstones. Stable
Mild pancreatic fatty infiltration. Stable
- Admit to med/surg
- Consult Urology
- Consult Cardiology for anticoagulant
- pain regimen
- antiemetics
#hypertension
- continue carvedilol and lisinopril
#atrial fibrillation
- continue dofetilide
- HOLD warfarin
#mitral valve prolapse
s/p valve replacement
INR 2.29
- HOLD warfarin
- Consult cardiology
#anemia
hgb 12.6, hct 40.2
- stable monitor CBC
#thrombocytopenia
plt 176
- stable, monitor CBC
Code status: full code
DVT prophylaxis: SCDs
[2024-09-19] MEDS: DILAUDID 1 MG IV (23:44)
[2024-09-19] MEDS: FLUSH (NSS) 1 FLUSH IV (23:49)
[2024-09-20] VITALS (15 sets, daily range): BP systolic 68–143; BP diastolic 43–80; PULSE 2–79; BMI 36.0
[2024-09-20] MEDS: NSS 1000 IV (01:14)
--- NOTE | 2024-09-20 01:38 | TRANSFER ---
Received pt from ED at 0035 left ureterolithiasis. Pt c/o 09/14 pain to left flank but said he felt ok since receiving pain med in ED. VS WNL. Assessment as documented. Discussed w pt need to strain urine for stones, pt verbalized understanding and
used urinal for void. IVF started as ordered. Care ongoing.
--- NOTE | 2024-09-20 06:20 | CON.MD ---
Consultation - Medical
-
see dictated note
pt followed by [facility] for bph/renal cyst and stones
had previous cysto for gross hematuria- negative
passed several stones- last in july of this year
presents with 1cm obstructing left UPJ stone and intractable colic with some hematuria
COMPLICATING ISSUE IS MECHANICAL MITRAL VALVE ON CHRONIC ANTICOAGULATION
have reviewed films
pt's last coumadin dose was 09/19
plan for OR for stent- then resume anticoagulation and observe for hematuria with plans for bring back in 10-14 days for definitive ureteroscopy
HIGH RISK nature of procedure and bleeding along with other risks, benefits, alternatives reviewed
Consultation
-
Date/Time Consultation Requested: 09/20/24 at midnight
Date/Time Consultation Performed: 09/20/24 at 6am
Requesting Provider: dr quintanilla/COLEEN
Performing Provider: dr lane
Reason for Consultation: stone
[2024-09-20] MEDS: ROCEPHIN 1000 MG IV (06:34)
[2024-09-20] MEDS: STERILE WATER FOR INJECTION 10 ML IV (06:35)
[2024-09-20 08:15] LABS: Hematocrit 35.5 % (39.0-52.0); Mean Corpuscular Hgb 21.3 pg (27.0-31.0); Mean Corpuscular Volume 68.7 fL (80.0-94.0); Red Blood Cell Count 5.17 10^6/uL (4.70-6.10); Red Cell Dist. Width 16.7 % (11.5-14.5); White Blood Cell Count 7.4 10^3/uL (4.8-10.8)
[2024-09-20 08:18] LABS: PT 26.2 Sec (11.4-14.6)
[2024-09-20 08:32] LABS: Blood Urea Nitrogen 17 mg/dl (9-20); Calcium 8.4 mg/dl (8.4-10.2); Carbon Dioxide 25 mmol/L (22-30); Chloride 108 mmol/L (98-107); Estimated Creatinine Clearance 63 ml/min; Glucose 132 mg/dl (70-99); Potassium 4.9 mmol/L (3.5-5.1); Sodium 139 mmol/L (135-145); eGFR > 60.00
[2024-09-20 08:41] LABS: Platelet Count 153 10^3/uL (130-400)
--- NOTE | 2024-09-20 08:48 | W.IMMPOSTOP ---
Surgical Immed Post Op Note
-
Primary Surgeon:
ariana
Assisting Surgeon:
Pre-op Diagnosis:
left upj stone
Post-op Diagnosis:
same
Procedure Performed:
cysto/left retrograde/stone manipulation and left ureteral stent
Anesthesia Type:
gen
Specimen / Cultures:
none
Estimated Blood Loss:
1cc
Complications:
none
Operative Findings:
stent placed
spoke to cardiology
based on INR and usual coumadin dosing- will give coumadin 4mg po in pacu and observe
updated by phone
[2024-09-20] MEDS: Pyridium 100 MG PO ×3 (09:04→23:14)
[2024-09-20] MEDS: COUMADIN 4 MG PO (09:04)
--- NOTE | 2024-09-20 09:45 | PTCARENOTE ---
Pt returned from the PACU via bed. Transport was w/o incident. Pt is AAOx3, HRR w/ click( hx of heart valve replacement). Resp. easy, Pulse ox 97% on RA. Pt reports mild left sided bladder/flank discomfort, but declines pain med. at this time. Pt
denies nausea. VS: 97.7-78-16-112/71. Pt voided upon arriving back to room. Urine is sl blood tinged, no blood clots noted. Call morrison is within reach.
--- NOTE | 2024-09-20 09:55 | CM ---
Cm reviewed medical records. Patient confirmed demographics. Patient lives independently with . Patent does not have a history of VN, SNF. Patient has a CPAP. Patient is active with his PCP. Patient has medication coverage.
PLAN: home no needs anticipated.
[2024-09-20] MEDS: ZESTRIL 10 MG PO (10:14)
[2024-09-20] MEDS: COREG 3.125 MG PO ×2 (10:24→20:06)
[2024-09-20] MEDS: FLOMAX 0.8 MG PO (10:24)
[2024-09-20] MEDS: PEPCID 20 MG PO (10:24)
[2024-09-20] MEDS: THERAGRAN 1 TABLET PO (10:26)
[2024-09-20] MEDS: TIKOSYN 250 MCG PO ×2 (10:29→20:06)
[2024-09-20] MEDS: NSS IV (11:10)
--- NOTE | 2024-09-20 11:10 | W.PN.HOSP.TC ---
Today's Communication/Plan
-
Resume Coumadin and monitor for bleeding
Hold lisinopril and follow renal function
Observe off IV fluids
Assessment / Plan
Assessment / Plan
Impression
Left UPJ stone
Mechanical AVR
Anticoagulation with Coumadin
Paroxysmal atrial fibrillation
Essential hypertension
Plan:
Left UPJ stone
Status post cystoscopy with stent placement on 09/20.
Afebrile. Status post single dose of perioperative ceftriaxone
Anticoagulation resumed.
Continue Flomax.
Continue Pyridium
Monitor and adjust analgesic regimen
Mechanical AVR
Correctly with compensated volume status
PAfib
Rate control with Coreg, Tikisyn,
Continue anticoagulation with Coumadin given AVR goal for INR 2.5-3.5
Essentail HTN
Continue Coreg
Noted with mildly elevated creatinine 1.3. Will hold lisinopril and monitor for hypotension.
Anticipated Discharge: 24 - 48 hours
Subjective/Interval History
-
Date of Service: September 20, 2024
Objective Data
-
Labs:
Laboratory Results
09/20/24 09/20/24
00:37 07:16
WBC Cancelled 7.4
Hgb Cancelled 11.0 L
Hct Cancelled 35.5 L
Plt Count Cancelled 153
PT 26.2 H
INR 2.40
APTT Cancelled
Sodium 139
Potassium 4.9
Chloride 108 H
Carbon Dioxide 25
BUN 17
Creatinine 1.3
Glucose 132 H
Calcium 8.4
Vital Signs:
Vital Signs
Temp Pulse Resp BP Pulse Ox
97.8 F 65 16 118/68 97
09/20/24 10:51 09/20/24 10:51 09/20/24 10:51 09/20/24 10:51 09/20/24 10:51
I&O
09/19/24 09/20/24 09/21/24
06:59 06:59 06:59
Intake Total 840 / 840 50 / 50
Output Total 250 / 250
Balance 590 / 590 50 / 50
Physical Exam
-
General: Well Developed and No Apparent Distress
HEENT: Normocephalic, Atraumatic and Moist Mucous Membranes
Respiratory: Clear to Auscultation
Cardiac: Regular Rhythm and S1/S2; Negative Murmur, Rub or Gallop
GI: Soft, Nontender, Nondistended and Normal Bowel Sounds; Negative Organomegaly
Rectal: Deferred by Provider
Musculoskeletal: No Clubbing, No Cyanosis and No Edema
Skin: Negative Rash
Neuro: Nonfocal/Grossly Intact
[2024-09-20] MEDS: NORCO 5/325 1 TABLET PO (12:43)
--- NOTE | 2024-09-20 13:21 | CON.CAR ---
Addendum entered and electronically signed by Nathaly Roach DO 09/20/24 17:53:
I saw and examined the patient.
The Teacher Counselor's note was reviewed and I agree with the note.
Comment: Patient seen and examined with cardiac PA. Loc is a 64-year-old male with past medical history significant for mitral valve prolapse status post mechanical mitral valve replacement and maze procedure in 2013 on chronic Coumadin
anticoagulation (INR target 2.5-3.5) managed by [facility], paroxysmal atrial fibrillation on antiarrhythmic drug therapy with Tikosyn, hypertension, BPH and obstructive sleep apnea on CPAP who presented to emergency department 09/19/2024 with left-sided
flank pain associated with nausea and vomiting. Patient had CT done approximately 3 weeks ago showing large stone in the renal collecting system. Repeat imaging in emergency department showed 9 mm obstructing left ureteropelvic
junction stone. INR was found to be 2.29 on admission. Patient was seen by urology and patient underwent successful left urethral stent placement 09/20/2024. Cardiology has been consulted to help manage anticoagulation for mechanical MVR. He is
chronically on warfarin at 3 mg daily managed by [facility] and is a home monitoring system. He has no history of stroke/TIA. He is previously been successful with Lovenox bridge when needed for colonoscopies. Patient was seen postop in room 2115. He
reports flank pain is significantly improved. He is voiding but does note hematuria without clots. No chest pain or pressure. No shortness of breath or edema. No fevers or chills.
General: No acute distress, AAOX3
Heart: Regular, positive S1/S2, crisp click of mechanical mitral valve
Lungs: CTA b/l, negative wheezes/rales/rhonchi
Abd: Mildly distended. Positive bowel sound
Ext: No edema
Neuro: nonfocal
Echo 05/18/2024: EF 64%, mild concentric LVH. Enlarged right ventricular size. Severe left atrial dilation. Mild right atrial dilation. Saint Ze mechanical valve with peak/mean gradient as 11/4 mmHg and trace MR. Trace TR. PAP 30 to 35 mmHg.
Echo 05/27/23: EF 55 to 60%, mechanical Saint Ze mitral valve replacement peak/mean 14/6 mmHg, no MR, normal aortic valve
Plan:
Presented 09/19/2024 with left-sided flank pain and found to have obstructing left ureteropelvic junction stone on imaging Status post left urethral stent placement 09/20/2024
- Hemodynamically stable postop
- Voiding with mild hematuria postprocedure, Expected
-Continue to monitor bleeding with resumption of anticoagulation
-Postprocedural management per urology
- On Flomax and Pyridium
History of mechanical Saint Ze mitral valve replacement and paroxysmal atrial fibrillation maintained on chronic anticoagulation with Coumadin
INR 2.4 (09/20/2024).
-Patient given 4 mg of Coumadin postoperatively 09/20. Goal INR 2.5-3.5
-Monitor INR and H&H
-Echocardiogram 05/18/2024 with stable MVR. No need to repeat echocardiogram
Paroxysmal atrial fibrillation status post intraoperative maze 2013, maintaining sinus rhythm Tikosyn 250 mcg twice daily
-Preop EKG stable in sinus rhythm with first-degree AV block and incomplete right bundle branch block with QTc 409 ms
-Telemetry monitoring 24 hours post procedure
-Coumadin anticoagulation as above
History of obstructive sleep apnea with utilization of CPAP as outpatient.
-Encouraged patient to continue with CPAP therapy this admission. will bring in CPAP for patient to utilize
History of hypertension maintained on lisinopril and carvedilol as outpatient.
Blood pressure reasonably controlled
Lisinopril remains on hold given creatinine of 1.3 on admission with UPJ stone resume when stable
Plan discussed with urology
Original Note:
Consultation
Consultation Request
Date/Time Consultation Requested: 09/20/2024
Date/Time Consultation Performed: 09/20/2024
Requesting Provider: CAMILLE Alcocer
Performing Provider: Nighat Brennan PA-C for Dr. Nathaly Roach
Reason for Consultation: Preoperative clearance, management of Coumadin
Medical History
-
History of Present Illness:
Patient is a 64-year-old male with past medical history significant for mitral valve prolapse status post mechanical mitral valve replacement and maze procedure in 2013, chronic anticoagulation on Coumadin managed by [facility], paroxysmal atrial
fibrillation on antiarrhythmic drug therapy with Tikosyn, hypertension, BPH and obstructive sleep apnea on CPAP who presented to emergency department 09/19/2024 with left-sided flank pain associated with nausea and vomiting. Patient had CT done
approximately 3 weeks ago showing large stone in the renal collecting system. Repeat imaging in emergency department showed 9 mm obstructing left ureteropelvic
junction stone. INR was found to be 2.29 on admission. Patient was seen by urology and patient underwent successful left urethral stent placement 09/20/2024. Cardiology has been consulted to help manage anticoagulation for mechanical MVR. He is
chronically on warfarin at 3 mg daily managed by [facility] and is a home monitoring system.
At time of this evaluation patient resting comfortably in bed postprocedure. He notes some mild hematuria on first void. He denies any chest pain, shortness of breath, dizziness, lightheadedness, palpitations, edema, orthopnea PND, fever or chills.
PMH:
Paroxysmal atrial fibrillation
s/p CV 06/03/23, 10/08/2023
Antiarrhythmic drug therapy with Tikosyn
Right bundle branch block
Previous intra-op MAZE 2013
s/p St. Ze mechanical MVR 08/2013
Chronic warfarin OAC managed by [facility] with goal INR 2.5-3.5
BPH
Obstructive sleep apnea on CPAP
Hypertension
Past Medical History
Past Medical History: Other (in HPI)
Past Surgical History: Cardiac (mechanical MVR and modified MAZE 08/17/23)
Social History
Tobacco: Non-Smoker
Alcohol: None
Drug: None
Personal:
Living: With Family
Employment: Employed (teacher)
Family History
Family History: Cancer and Other (father with valve repair)
Allergies / Home Medications
Allergy/AdvReac Type Severity Reaction Status Date / Time
No Known Allergies Allergy Verified 09/19/24 20:01
�Medication �Instructions �Recorded �Confirmed �Type
lisinopril 10 mg tablet 10 mg PO DAILY Blood Pressure 06/03/23 09/20/24 History
tamsulosin 0.4 mg capsule 0.8 mg PO DAILY Urinary Issue 06/03/23 09/20/24 History
famotidine 20 mg tablet 20 mg PO DAILY Gastrointestinal 10/06/23 09/20/24 History
Issue
multivitamin with folic acid 400 1 tab PO DAILY Supplement 10/07/23 09/20/24 History
mcg tablet (Tab-A-Reji)
carvedilol 3.125 mg tablet 3.125 mg PO BID Arrhythmia #60 tabs 10/08/23 09/20/24 Rx
dofetilide 250 mcg capsule 250 mcg PO Q12 Arrhythmia #60 caps 10/08/23 09/20/24 Rx
warfarin 1 mg tablet 0.5 mg PO DAILY Blood Clot 09/19/24 09/20/24 History
Prevention/Tx
warfarin 2.5 mg tablet 2.5 mg PO DAILY Blood Clot 09/19/24 09/20/24 History
Prevention/Tx
Review of Systems
-
History Source: Patient
All other systems: Negative unless noted
Physical Exam
Vital Signs
Temp Pulse Resp BP Pulse Ox
97.9 F 66 16 138/80 97
09/20/24 12:03 09/20/24 12:03 09/20/24 12:03 09/20/24 12:03 09/20/24 12:03
GEN: No distress, awake, Ox3, sitting in bed
HEENT: supple, anicteric, mmm
LUNGS: CTA, no wheezes/rales bilaterally
CV: Reg, S1/S2, audible click of mechanical valve without significant murmur, no rubs or gallop
ABD: soft, BS+, NT/ND
EXT: No edema, clubbing or cyanosis
NEURO: Gross non-focal
SKIN: No rash, warm, dry, pink
Lab Results
09/20/24 07:16
09/20/24 07:16
Impression / Plan
-
PCP: Dr. Babb
Cardiology: Dr. Chon Skinner
Impression:
Presented 09/19/2024 with left-sided flank pain
Obstructing left ureteropelvic junction stone
Status post left urethral stent placement 09/20/2024
Paroxysmal atrial fibrillation
s/p CV 06/03/23, 10/08/2023
Antiarrhythmic drug therapy with Tikosyn
Right bundle branch block
Previous intra-op MAZE 2013
s/p St. Ze mechanical MVR 08/2013
Chronic warfarin OAC managed by [facility] with goal INR 2.5-3.5
BPH
Obstructive sleep apnea on CPAP
Hypertension
Echo 05/18/2024: EF 64%, mild concentric LVH. Enlarged right ventricular size. Severe left atrial dilation. Mild right atrial dilation. Saint Ze mechanical valve with peak/mean gradient as 11/4 mmHg and trace MR. Trace TR. PAP 30 to 35 mmHg.
Echo 05/27/23: EF 55 to 60%, mechanical Saint Ze mitral valve replacement peak/mean 14/6 mmHg, no MR, normal aortic valve
Plan:
- Presented 09/19/2024 with left-sided flank pain and found to have obstructing left ureteropelvic junction stone on imaging.
Status post left urethral stent placement 09/20/2024 and noted some mild hematuria postprocedure. Continue to monitor bleeding with resumption of anticoagulation
Patient did not get 1 dose of ceftriaxone preop.
Continue Flomax and Pyridium
- History of mechanical mitral valve replacement and paroxysmal atrial fibrillation maintained on chronic anticoagulation with Coumadin
INR 2.4 (09/20/2024). Patient given 4 mg of Coumadin postoperatively 09/20
Hemoglobin stable at 11.0
Goal INR 2.5-3.5
Continue to monitor for recurrent hematuria. Some expected postprocedure
INRs are managed by [facility] as an outpatient and INRs checked every other week using a home INR machine
If patient requires additional urologic procedure will need to bridge with Lovenox
- Paroxysmal atrial fibrillation maintained on Tikosyn 250 mcg twice daily
Preop EKG stable in sinus rhythm with first-degree AV block and incomplete right bundle branch block with QTc 409 ms
Need to continue to monitor on telemetry throughout admission for QT monitoring
Coumadin dosing as noted above
- History of obstructive sleep apnea with utilization of CPAP as outpatient. Encouraged patient to continue with CPAP therapy this admission. will bring in CPAP for patient to utilize
-History of hypertension maintained on lisinopril and carvedilol as outpatient.
Blood pressure reasonably controlled
Lisinopril remains on hold given creatinine of 1.3 on admission with UPJ stone resume when stable
Plan discussed with patient, patient's at bedside, urology, hospitalist and nursing
HPI 09/20/2024:
Patient is a 64-year-old male with past medical history significant for mitral valve prolapse status post mechanical mitral valve replacement and maze procedure in 2013, chronic anticoagulation on Coumadin managed by [facility], paroxysmal atrial
fibrillation on antiarrhythmic drug therapy with Tikosyn, hypertension, BPH and obstructive sleep apnea on CPAP who presented to emergency department 09/19/2024 with left-sided flank pain associated with nausea and vomiting. Patient had CT done
approximately 3 weeks ago showing large stone in the renal collecting system. Repeat imaging in emergency department showed 9 mm obstructing left ureteropelvic
junction stone. INR was found to be 2.29 on admission. Patient was seen by urology and patient underwent successful left urethral stent placement 09/20/2024. Cardiology has been consulted to help manage anticoagulation for mechanical MVR. He is
chronically on warfarin at 3 mg daily managed by [facility] and is a home monitoring system.
At time of this evaluation patient resting comfortably in bed postprocedure. He notes some mild hematuria on first void. He denies any chest pain, shortness of breath, dizziness, lightheadedness, palpitations, edema, orthopnea PND, fever or chills.
Data Reviewed
-
EKG: Report Reviewed by me, Discussed with Physician, Discussed with Nurse and Discussed with Patient
CT Scan: Report Reviewed by me, Discussed with Physician and Discussed with Patient
Labs: Labs Reviewed by me, Discussed with Physician, Discussed with Patient and Discussed with Family
Old Records: Reviewed
[2024-09-20] MEDS: COLACE 100 MG PO (20:06)
[2024-09-21 03:00] VITALS: BP 114/65
[2024-09-21 07:38] LABS: PT 30.2 Sec (11.4-14.6)
[2024-09-21 07:49] VITALS: BP 141/82
[2024-09-21 08:01] LABS: Blood Urea Nitrogen 21 mg/dl (9-20); Calcium 8.8 mg/dl (8.4-10.2); Carbon Dioxide 26 mmol/L (22-30); Chloride 108 mmol/L (98-107); Estimated Creatinine Clearance 68 ml/min; Glucose 140 mg/dl (70-99); Potassium 5.1 mmol/L (3.5-5.1); Sodium 138 mmol/L (135-145); eGFR > 60.00
[2024-09-21 08:04] LABS: % Basophils 0.1 % (0-2); % Eosinophils 0.1 % (0-6); % Immature Granulocytes 0.7 % (0-0.5); % Lymphocytes 8.6 % (20.5-51.1); % Monocytes 6.6 % (1.7-9.3); % Neutrophils 83.9 % (42.2-75.2); Absolute Immature Granulocytes 0.1 10^3/uL (0-0.05); Absolute Lymphocytes 0.8 10^3/uL (1.2-3.4); Absolute Monocytes 0.6 10^3/uL (0.1-0.6); Absolute Neutrophils 8.1 10^3/uL (1.4-6.5); Hemoglobin 10.7 g/dL (13.0-18.0); Mean Corp Hgb Conc. 31.5 g/dL (33.0-37.0); Mean Corpuscular Hgb 21.3 pg (27.0-31.0); Mean Corpuscular Volume 67.6 fL (80.0-94.0); Nucleated Red Blood Cells % 0 % (-); Platelet Count 158 10^3/uL (130-400); Red Blood Cell Count 5.03 10^6/uL (4.70-6.10); Red Cell Dist. Width 16.3 % (11.5-14.5); White Blood Cell Count 9.7 10^3/uL (4.8-10.8)
--- NOTE | 2024-09-21 08:32 | W.PN.CARDCBS ---
Addendum entered and electronically signed by Christopher Inman DO 09/21/24 12:59:
I saw and examined the patient.
The [employer] Aid Labor's note was reviewed and I agree with the note.
Comment:
Continue coumadin at 3 mg
Reviewed Lovenox bridge with urology
For stone removal and stent September.
Remains stable from cardiac standpoint for d/c.
Original Note:
Today's Communication / Plan
-
Continue Coumadin 3 mg daily for goal INR 2.5-2.5
Tentative stent and stone removal 09/30. Hold Coumadin 5 days prior. Daily home INR readings during Coumadin held. Lovenox bridge once INR drops below 2.5
Outpatient Coumadin Clinic will reach out to patient to discuss Lovenox bridge
Stable from cardiac standpoint for d/c
Impression / Plan
-
PCP: Dr. Babb
Cardiology: Dr. Chon Skinner
Impression:
Presented 09/19/2024 with left-sided flank pain
Obstructing left ureteropelvic junction stone
Status post left urethral stent placement 09/20/2024
Paroxysmal atrial fibrillation
s/p CV 06/03/23, 10/08/2023
Antiarrhythmic drug therapy with Tikosyn
Right bundle branch block
Previous intra-op MAZE 2013
s/p St. Ze mechanical MVR 08/2013
Chronic warfarin OAC managed by [facility] with goal INR 2.5-3.5
BPH
Obstructive sleep apnea on CPAP
Hypertension
Echo 05/18/2024: EF 64%, mild concentric LVH. Enlarged right ventricular size. Severe left atrial dilation. Mild right atrial dilation. Saint Ze mechanical valve with peak/mean gradient as 11/4 mmHg and trace MR. Trace TR. PAP 30 to 35 mmHg.
Echo 05/27/23: EF 55 to 60%, mechanical Saint Ze mitral valve replacement peak/mean 14/6 mmHg, no MR, normal aortic valve
Plan:
- Presented 09/19/2024 with left-sided flank pain and found to have obstructing left ureteropelvic junction stone on imaging.
Status post left urethral stent placement 09/20/2024 and noted some mild hematuria postprocedure. Minimal hematuria and clots in last 24 hours with therapeutic INR
Continue Flomax and Pyridium per urology
Doing well. Tentative Plan for stent and stone removal 09/30 with urology/Quinn. Will plan for Lovenox bridge for next procedure
- History of mechanical mitral valve replacement and paroxysmal atrial fibrillation maintained on chronic anticoagulation with Coumadin. Goal INR 2.5-3.5
INR 2.4 (09/20/2024). Patient given 4 mg of Coumadin postoperatively 09/20, INR therapeutic at 2.9 (09/21). Continue 3 mg daily with likely hold 5 days prior to urology procedure
Hemoglobin stable at 10.7
INRs are managed by [facility] as an outpatient and pt has home monitor.
Tentative stent and stone removal 09/30. Hold Coumadin 5 days prior. Daily home INR readings during Coumadin held. Lovenox bridge once INR drops below 2.5
- Paroxysmal atrial fibrillation maintained on Tikosyn 250 mcg twice daily
Preop EKG stable in sinus rhythm with first-degree AV block and incomplete right bundle branch block with QTc 409 ms. QTc remains stable, ECG QTc 497 ms post op ECG
No afib noted on telemetry
Coumadin dosing as noted above
- History of obstructive sleep apnea with utilization of CPAP as outpatient. Encouraged patient to continue with CPAP therapy this admission.
-History of hypertension maintained on lisinopril and carvedilol as outpatient.
Blood pressure reasonably controlled
Lisinopril remains on hold given creatinine of 1.3 on admission, now 1.2. Consider resumption of Lisinopril after stone removal
Stable from cardiac standpoint for d/c
Plan discussed with patient, urology, hospitalist, nursing and [facility] Coumadin clinic who will reach out to patient
HPI 09/20/2024:
Patient is a 64-year-old male with past medical history significant for mitral valve prolapse status post mechanical mitral valve replacement and maze procedure in 2013, chronic anticoagulation on Coumadin managed by [facility], paroxysmal atrial
fibrillation on antiarrhythmic drug therapy with Tikosyn, hypertension, BPH and obstructive sleep apnea on CPAP who presented to emergency department 09/19/2024 with left-sided flank pain associated with nausea and vomiting. Patient had CT done
approximately 3 weeks ago showing large stone in the renal collecting system. Repeat imaging in emergency department showed 9 mm obstructing left ureteropelvic
junction stone. INR was found to be 2.29 on admission. Patient was seen by urology and patient underwent successful left urethral stent placement 09/20/2024. Cardiology has been consulted to help manage anticoagulation for mechanical MVR. He is
chronically on warfarin at 3 mg daily managed by [facility] and is a home monitoring system.
At time of this evaluation patient resting comfortably in bed postprocedure. He notes some mild hematuria on first void. He denies any chest pain, shortness of breath, dizziness, lightheadedness, palpitations, edema, orthopnea PND, fever or chills.
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
Subjective
Date of Service: September 21, 2024
Patient seen and examined. Overall feeling well. Minimal hematuria overnight and this am with therapeutic INR
Objective
Labs:
09/21/24 06:48
09/21/24 06:48
Labs
Hgb 10.7 g/dL (13.0-18.0) L 09/21/24 06:48
Hct 34.0 % (39.0-52.0) L 09/21/24 06:48
Plt Count 158 10^3/uL (130-400) 09/21/24 06:48
PT 30.2 Sec (11.4-14.6) H 09/21/24 06:48
INR 2.90 09/21/24 06:48
APTT Cancelled 09/20/24 00:37
Sodium 138 mmol/L (135-145) 09/21/24 06:48
Potassium 5.1 mmol/L (3.5-5.1) 09/21/24 06:48
BUN 21 mg/dl (9-20) H 09/21/24 06:48
Creatinine 1.2 mg/dL (0.7-1.3) 09/21/24 06:48
Glucose 140 mg/dl (70-99) H 09/21/24 06:48
Vital Signs and I&O:
Vital Signs
Temp Pulse Resp BP Pulse Ox
97.6 F 71 16 141/82 98
09/21/24 07:49 09/21/24 07:49 09/21/24 07:49 09/21/24 07:49 09/21/24 07:49
Vital Signs
Temp Pulse Resp BP Pulse Ox
97.6 F 71 16 141/82 98
09/21/24 07:49 09/21/24 07:49 09/21/24 07:49 09/21/24 07:49 09/21/24 07:49
Intake & Output
09/19/24 09/20/24 09/21/24 09/22/24
06:59 06:59 06:59 06:59
Intake Total 840 / 840 530 / 530
Output Total 250 / 250 250 / 250
Balance 590 / 590 280 / 280
Physical Exam
Physical Exam
GEN: No distress, awake, Ox3, sitting in bed
HEENT: supple, anicteric, mmm
LUNGS: CTA, no wheezes/rales bilaterally
CV: Reg, S1/S2, audible click of mechanical valve without significant murmur, no rubs or gallop
ABD: soft, BS+, NT/ND
EXT: No edema, clubbing or cyanosis
NEURO: Gross non-focal
SKIN: No rash, warm, dry, pink
--- NOTE | 2024-09-21 08:34 | W.PN.URO.CBU ---
Today's Communication / Plan
-
discharge when medically stable
oupt surgery on september 30 thru lovenox window if possibe
Assessment / Plan
-
obstructing left ureteral/upj stone s/p stent
chronic anticoagulation due to mechanical mitral valve
reviewed plan/risks/difficulties at length with pt at bedside
he is not trending for difficult hematuria at this time- so from my standpoint- ok for discharge with continued flomax/pyridium 100mg po bid and prn tramadol
my plan is to return to [place] on september 30 for ureteroscopy- would like to do through lovenox window and will discuss with cardiology including length of time I can leave pt off blood thinners during recovery period
again risks/benefits/alternatives reviewed
pt will call my office to confirm surgery date
Diagnosis
-
Date of Service: September 21, 2024
-
Patient Diagnosis:
stone
chronic anticoagulation due to mitral valve
Post Op Day:
left ureteral stent 09/20
Subjective
-
pt feels ok
expected stent irritation
urine pink to almost clear this am
Objective
-
Vital Signs
Temp Pulse Resp BP Pulse Ox
97.6 F 71 16 141/82 98
09/21/24 07:49 09/21/24 07:49 09/21/24 07:49 09/21/24 07:49 09/21/24 07:49
Intake and Output
09/20/24 09/21/24 09/22/24
06:59 06:59 06:59
Intake Total 840 / 840 530 / 530
Output Total 250 / 250 250 / 250
Balance 590 / 590 280 / 280
Intake:
Oral fluids 240 / 240 480 / 480
IV fluids (Total) 600 / 600 50 / 50
normosol 50 / 50
Output:
Urine, Voided 250 / 250 250 / 250
Other:
Number of approximated MODERATE 1
amounts of urine
Number of approximated LARGE 1 4
amounts of urine
Laboratory Results
09/21/24 06:48
09/21/24 06:48
Review of Systems
-
Constitutional: Fatigue
Respiratory: No Symptoms
Cardiac: No Symptoms
Abdomen/GI: No Symptoms
: Frequency and Bleeding
Physical Exam
-
General - no acute distress
Counseling
-
30 minutes
[2024-09-21] MEDS: COREG 3.125 MG PO (09:48)
[2024-09-21] MEDS: TIKOSYN 250 MCG PO (09:48)
[2024-09-21] MEDS: PEPCID 20 MG PO (09:49)
[2024-09-21] MEDS: THERAGRAN 1 TABLET PO (09:49)
[2024-09-21] MEDS: COLACE 100 MG PO (09:49)
[2024-09-21] MEDS: Pyridium 100 MG PO (09:49)
[2024-09-21] MEDS: FLOMAX 0.8 MG PO (09:49)
[2024-09-21 11:36] VITALS: BP 158/78
--- NOTE | 2024-09-21 13:44 | W.DS.TRANS ---
DC Summary - Gift Shop Assistant
-
Discharge Instructions:
Discharge Diagnosis/Procedures Left UPJ stone
Mechanical AVR
Anticoagulation with Coumadin
Paroxysmal atrial fibrillation
Essential hypertension
Diet Regular
Instructions:
Stand-Alone Forms:
Changes to Home Medications: No
Discharge Medications:
DC Medications w/original date entered in [employer]
lisinopril 10 mg tablet 10 mg PO DAILY Blood Pressure 06/03/23
tamsulosin 0.4 mg capsule 0.8 mg PO DAILY Urinary Issue 06/03/23
famotidine 20 mg tablet 20 mg PO DAILY Gastrointestinal Issue 10/06/23
multivitamin with folic acid 400 mcg tablet (Tab-A-Reji) 1 tab PO DAILY Supplement 10/07/23
carvedilol 3.125 mg tablet 3.125 mg PO BID Arrhythmia #60 tabs 10/08/23
dofetilide 250 mcg capsule 250 mcg PO Q12 Arrhythmia #60 caps 10/08/23
warfarin 1 mg tablet 0.5 mg PO DAILY Blood Clot Prevention/Tx 09/19/24
warfarin 2.5 mg tablet 2.5 mg PO DAILY Blood Clot Prevention/Tx 09/19/24
Home Medication Changes
Pending Results: No
--- NOTE | 2024-09-21 14:54 | CM ---
Reviewed the chart notes. Patient being discharged to home today. CM continues to be available to patient/family and is monitoring medical plan for needs at discharge.
Plan: Discharge to home with no additional needs being identified at this time.
== END 2024-09-21 14:52 | disposition home or self-care (01) ==
LOC: PACU 23:52
PROVIDERS: Hospitalist; Internal Medicine; Nurse Practitioner Family; Physician Assistant; CONSULT PHYSICIAN Specialist; EMERGENCY PHYSICIAN Student in an Organized Health Care Education/Training Program; OTHER PHYSICIAN Internal Medicine Cardiovascular Disease
DX: N13.2 Hydronephrosis with renal and ureteral calculous obstruction (principal); I48.0 Paroxysmal atrial fibrillation; D68.8 Other specified coagulation defects; I10 Essential (primary) hypertension; D64.9 Anemia, unspecified; D69.6 Thrombocytopenia, unspecified; N28.1 Cyst of kidney, acquired; G47.33 Obstructive sleep apnea (adult) (pediatric); I45.10 Unspecified right bundle-branch block; I49.1 Atrial premature depolarization; D35.02 Benign neoplasm of left adrenal gland; K80.20 Calculus of gallbladder without cholecystitis without obstruction; N40.0 Benign prostatic hyperplasia without lower urinary tract symptoms; R31.0 Gross hematuria; E66.9 Obesity, unspecified; Z95.2 Presence of prosthetic heart valve; Z87.442 Personal history of urinary calculi; Z79.01 Long term (current) use of anticoagulants; Z68.36 Body mass index [BMI] 36.0-36.9, adult; Z79.899 Other long term (current) drug therapy
CPT/HCPCS: 52352; 52332; 74176; 74420; 76000; 80048; 81003; 81015; 85025; 85027; 85610; 93005; 94660; 96361; 96374; 96375; 96376; 99285; C1758; C2617; G0378

== ENCOUNTER 2024-09-30 06:22 | Day surgery (SDC) | payer MEDICARE, OTHER, SELFPAY ==
--- NOTE | 2024-09-24 11:11 | PTCARENOTE ---
Piepr at 'ss office was notified of INR 2.90 collected on 09/21/24.
[2024-09-30] VITALS (8 sets, daily range): BP systolic 113–145; BP diastolic 58–81; BMI 35.2
[2024-09-30] MEDS: NORMOSOL-R/PLASMALYTE-A 1000 IV (09:25)
[2024-09-30] MEDS: Pyridium 200 MG PO (12:42)
== END 2024-09-30 13:46 | disposition home or self-care (01) ==
LOC: SDS 06:22
PROVIDERS: ATTENDING PHYSICIAN Specialist
DX: N20.2 Calculus of kidney with calculus of ureter (principal)
CPT/HCPCS: 52356; 74018; 76000; 82365; C1769; C1894; C2617

== ENCOUNTER 2025-01-14 11:35 | Emergency (ER) | payer MEDICARE, OTHER, SELFPAY ==
[2025-01-14 11:40] VITALS: BP 160/99
--- NOTE | 2025-01-14 11:59 | ED.GENMED ---
History of Present Illness
General
Chief Complaint: Musculo-Skeletal Complaint
Source: patient
Exam Limitations: none
Time Seen by Provider: 01/14/25 11:53
History of Present Illness
History of Present Illness:
See MDM
Past History
Past History
ED Past Medical History: Arrthythmia (Afib), HTN and Valvular disease
ED Past Surgical History: Cardiac and Other (Valve replacement 2013)
Patient has exhibited threatening behavior?: No
Social History
Tobacco: Non-smoker
Alcohol: None
Drug: None
Personal:
Living: with family
Phy Exam
Physical Exam
Physical Exam:
See MDM
Course
Orders/Labs/Results
Orders:
Orders
01/14/25 11:57
Toes 2 Views, Right [CR Toe(s) Min 2 Vw Right] Urgent
Comment:
Reason For Exam: R 4th toe pain
01/14/25 13:34
Ortho Boot Right- Treatment ONCE
Short or tall?: Short
Vital Signs
Initial and Last Documented VS:
Initial Vital Signs
Temp Pulse Resp BP Pulse Ox
98.1 F 75 18 160/99 99
01/14/25 11:40 01/14/25 11:40 01/14/25 11:40 01/14/25 11:40 01/14/25 11:40
Last Documented Vital Signs
Temp Pulse Resp BP Pulse Ox
98.1 F 75 18 160/99 99
01/14/25 11:40 01/14/25 11:40 01/14/25 11:40 01/14/25 11:40 01/14/25 12:01
MDM/Problems Addressed
Differential Diagnosis Includes:
Note:
CHIEF COMPLAINT(S)
Right toe pain following a stubbed toe injury.
HISTORY OF PRESENT ILLNESS
The patient is a 65-year-old male who presents with right toe pain following a stubbed toe injury that occurred at approximately 5:00 AM yesterday. The patient described the pain as primarily located at the base of the right 4th toe, with the
discomfort intensifying upon standing. The injury does not seem to be associated with a weight-bearing restriction, although it is painful. The patient stated that standing causes discomfort, particularly on the ball of the foot. An X-ray was
discussed to examine the fracture alignment, and it was noted that it appears properly aligned. The patient is willing to manage the pain with [id number] medications but mentioned that acetaminophen is ineffective. The patient requested a
prescription for Tramadol for pain management. It was suggested the patient use a boot to reduce pressure on the toe and that a referral to a swatch checker (foot doctor) would be provided for further assessment.
PHYSICAL EXAM
General: Alert, no acute distress.
Skin: Warm, dry.
Head: Normocephalic, atraumatic
Neck: Appears supple, trachea midline.
Eyes, Ears, Nose, Mouth, and Throat: Moist mucous membranes
Cardiovascular: No signs of cyanosis
Respiratory: Respirations are non-labored.
Abdomen: Non-distended
Musculoskeletal: Bruising and swelling noted to right fourth toe. Sensation grossly intact. Cap refill less than 2 seconds
Neurological: No focal neurological deficit observed.
Psychiatric: Cooperative, appropriate mood and affect.
PLAN
1. Obtain an X-ray to confirm proper alignment of the right toe fracture.
2. Prescribe Tramadol for pain management, as acetaminophen is ineffective for the patient who is on blood thinners.
3. Provide a boot to reduce pressure on the affected area of the foot.
4. Referral to a swatch checker for further evaluation and management.
DIFFERENTIAL DIAGNOSIS
The Differential Diagnosis includes, in no particular order and is not limited to:
1. Toe fracture
2. Contusion
3. Sprain of toe
4. Metatarsalgia
5. Osteoarthritis
6. Peripheral neuropathy
7. Gout
8. Bursitis
9. Osteomyelitis
10. Plantar fasciitis
SUMMARY OF ENCOUNTER
The patient presented with pain in the right toe following a stubbed toe injury. Imaging confirmed fractures at the base of the right third, fourth, and fifth toes. An orthopedic boot was provided to reduce pressure on the affected area. Pain
management options were discussed, highlighting NSAIDs as the first-line therapy, but a prescription for Tramadol was provided instead due to the patients needs.
PLAN
1. Prescribe Tramadol for pain management, considering the ineffectiveness of acetaminophen.
2. Advise using a stool softener to counteract potential constipation associated with narcotic use.
3. Suggest follow-up with a swatch checker for further assessment and management.
4. Encourage continued use of the orthopedic boot to alleviate pressure on the injured toes.
PATIENT EDUCATION AND COUNSELING
The patient was educated on the management of pain with Tramadol and the importance of possibly using a stool softener. Instructions were given on the use and benefits of the orthopedic boot. The patient was also advised on the need for follow-up
with a swatch checker for ongoing care of the fractures.
MEDICATION RECONCILIATION
1. Prescribed Tramadol for pain management.
2. Recommended use of a stool softener due to narcotic side effects.
MEDICAL DECISION MAKING
-Complexity of Data Reviewed:
Chronic conditions affecting care: The patient is on blood thinners and has fractures at the base of the right third, fourth, and fifth toes.
Differential Diagnosis list includes: Toe fracture, Contusion, Sprain of toe, Metatarsalgia, Osteoarthritis, Peripheral neuropathy, Gout, Bursitis, Osteomyelitis, Plantar fasciitis.
-Data:
Category 1
Imaging confirmed fractures of the right third, fourth, and fifth toes.
-Risk:
Prescription medication was prescribed: Tramadol for pain management.
DIAGNOSIS
1. Fracture of the right third, fourth, and fifth toes (ICD-10: S92.525A).
*Pulse Oximetry
SaO2: 99
Patient hypoxic: no
*Critical Care Note
Total Time (30-74mins, 75-104mins- exclusive of procedures): Not Applicable
ED Attending Note
-
Portions of this chart may have been created with voice recognition software.� Occasional wrong word or��sound alike� substitutions may have occurred due to the inherent limitations of voice recognition software.
Discharge Plan
Departure
Patient Disposition: Home (Routine Discharge)
Date of Disposition: 01/14/25
Time of Disposition: 13:35
Patient with high blood pressure during this ER visit?: Yes
Discharge Problem:
Closed fracture of toe
Instructions: Toe Fracture ED
Prescriptions:
New
tramadol 50 mg tablet
50 mg PO BID PRN (Reason: pain) Qty: 14 0RF
No Action
tamsulosin 0.4 mg Capsule
0.4 mg PO BID
lisinopril 10 mg Tablet
10 mg PO DAILY
famotidine 20 MG tablet
20 mg PO DAILY
multivitamin with folic acid [Tab-A-Reji] 1 TABLET tablet
1 tab PO DAILY
dofetilide 250 mcg Capsule
250 mcg PO Q12 Qty: 60 11RF
carvedilol 3.125 mg Tablet
3.125 mg PO BID Qty: 60 11RF
warfarin 3 mg Tablet
3 mg PO DAILY
enoxaparin [Lovenox] 100 mg/mL Syringe
100 mg SC Q12H
phenazopyridine [Pyridium] 100 mg Tablet
100 mg PO TID PRN (Reason: Bladder Pain)
Referrals:
Aman Bowie DPM [Active, Podiatry]
UNKNOWN - PT DOES,NOT KNOW [Unknown Provider]
Activity Restrictions/Additional Instructions:
Please return for any worsening symptoms.
You may return at any time if you have further concerns.
Please follow up with your doctor at the first available appointment, preferably this week.
Please make an appointment to see the swatch checker.
You were given a prescription for narcotics. If you require this pain medicine, please take a daily [id number] stool softener to avoid constipation.
Thank you for choosing [facility].
Interventions
Interventions:
*Risk Screen - Suicide Last Done: 01/14/25 11:41
*Neglect/Abuse Screening Last Done: 01/14/25 11:41
ED-Musculoskeletal Assessment Last Done: 01/14/25 12:06
Discharge Date and Time
Print Language: TELUGU
== END 2025-01-14 14:01 | disposition home or self-care (01) ==
LOC: EMR 11:35
PROVIDERS: EMERGENCY PHYSICIAN Student in an Organized Health Care Education/Training Program; FAMILY PHYSICIAN Family Medicine
DX: S92.911A Unspecified fracture of right toe(s), initial encounter for closed fracture (principal); X58.XXXA Exposure to other specified factors, initial encounter; I48.91 Unspecified atrial fibrillation; I10 Essential (primary) hypertension; I38 Endocarditis, valve unspecified; Z79.01 Long term (current) use of anticoagulants; Z95.2 Presence of prosthetic heart valve
CPT/HCPCS: 99283; 73660